=== PATIENT | male | born 1985 | race Caucasian/White ===

== ENCOUNTER 2017-04-26 17:45 | Emergency (ER) | payer OTHER, SELFPAY | END 2017-04-26 18:20 | disposition home or self-care (01) | PROVIDERS: Emergency Provider Nurse Practitioner Family; Visit Provider Nurse Practitioner Family | DX: S02.5XXB Fracture of tooth (traumatic), initial encounter for open fracture (principal); X58.XXXA Exposure to other specified factors, initial encounter | CPT/HCPCS: 99201 ==

== ENCOUNTER → 2022-03-12 14:50 | Outpatient (CLI) | payer MEDICAID, SELFPAY ==
[2022-03-12 13:55] LABS: Alanine Aminotransferase 32 U/L (12-78); Albumin Level 3.5 g/dl (3.5-5.0); Albumin/Globulin Ratio 1.1 (1.1-1.8); Alkaline Phosphatase 145 U/L (38-126); Anion Gap 12.4 mEq/L (5-15); Aspartate Amino Transferase 38 U/L (17-59); Basophils # 0.1 K/mm3 (0-0.2); Basophils % 0.5 % (0.1-2.0); Bilirubin,Total 0.6 mg/dl (0.2-1.3); Blood Urea Nitrogen 27 mg/dl (9-20); Calcium 9.1 mg/dl (8.4-10.2); Carbon Dioxide 29 mmol/L (22.0-30.0); Chloride 102 mmol/L (98-107); Chol/HDL Ratio 8.2 (1-3.5); Cholesterol 287 mg/dl (140-200); Eosinophils # 0.1 K/mm3 (0.0-0.4); Eosinophils % 1.4 % (0.1-12.0); Estimated Glomerular Filt Rate 46 ml/min (>60); GFR (African American) 55 ML/MIN (>60); Globulin 3.1 g/dL (1.3-3.2); Glucose 102 mg/dl (74-100); HDL Cholesterol 35 mg/dl (40-60); Hematocrit 51.1 % (42.0-52.0); Hemoglobin 16.9 g/dL (14.1-18.0); Lymphocytes # 1.7 K/mm3 (0.7-4.5); Lymphocytes % 17.8 % (10-50); Mean Corpuscular Hemoglobin 29.5 pg (27.0-31.2); Mean Corpuscular Volume 89.4 fl (80-94); Mean Platelet Volume 8.5 fl (7.4-10.4); Monocytes # 0.8 K/mm3 (0.1-1.0); Monocytes % 8.3 % (1.7-9.3); Neutrophils # 6.8 K/mm3 (1.8-7.8); Platelet Count 304 K/mm3 (142-424); Potassium 4.4 mmoL/L (3.5-5.1); Red Blood Count 5.71 M/mm3 (4.60-6.20); Red Cell Distribution Width 14.5 % (11.5-17.5); Sodium 139 mmol/L (136-145); Total Protein,Serum 6.6 g/dl (6.3-8.2); Triglycerides 270 mg/dl (30-150); VLDL Cholesterol 54 mg/dL (0-40); White Blood Count 9.5 K/mm3 (4.8-10.8)
[2022-03-12 14:06] LABS: Direct LDL Cholesterol 197.14 mg/dL (100-129)
[2022-03-12 14:15] LABS: Hemoglobin A1C 4.9 % (4.0-6.0)
[2022-03-12 14:26] LABS: Thyroid Stimulating Hormone 5.11 uIU/mL (0.465-4.68)
== END ==
PROVIDERS: PCP Family Medicine; Visit Provider Family Medicine
DX: E66.9 Obesity, unspecified (principal); Z68.44 Body mass index [BMI] 60.0-69.9, adult
CPT/HCPCS: 80053; 80061; 83036; 84443; 85025

== ENCOUNTER 2023-05-21 18:30 | Outpatient (CLI) | payer MEDICAID, SELFPAY ==
[2023-05-21 19:20] LABS: Basophils % 0.4 % (0.1-2.0); Eosinophils # 0.2 K/mm3 (0.0-0.4); Hematocrit 35.7 % (42.0-52.0); Hemoglobin 11.9 g/dL (14.1-18.0); Lymphocytes # 1.1 K/mm3 (0.7-4.5); Lymphocytes % 11.9 % (10-50); Mean Corpuscular HGB Conc 33.3 g/dL (31.8-35.4); Mean Corpuscular Hemoglobin 30.1 pg (27.0-31.2); Mean Corpuscular Volume 90.3 fl (80-94); Mean Platelet Volume 9.1 fl (7.4-10.4); Monocytes # 0.5 K/mm3 (0.1-1.0); Monocytes % 5.7 % (1.7-9.3); Neutrophils # 7.4 K/mm3 (1.8-7.8); Neutrophils % 80.1 % (37.0-80.0); Platelet Count 215 K/mm3 (142-424); Red Blood Count 3.95 M/mm3 (4.60-6.20); Red Cell Distribution Width 14.5 % (11.5-17.5); White Blood Count 9.2 K/mm3 (4.8-10.8)
[2023-05-21 19:23] LABS: Alanine Aminotransferase 25 U/L (12-78); Albumin Level 3.7 g/dl (3.5-5.0); Albumin/Globulin Ratio 1.3 (1.1-1.8); Alkaline Phosphatase 109 U/L (38-126); Anion Gap 18.3 mEq/L (5-15); Aspartate Amino Transferase 28 U/L (17-59); Bilirubin,Total 0.5 mg/dl (0.2-1.3); Calcium 6.3 mg/dl (8.4-10.2); Carbon Dioxide 17 mmol/L (22.0-30.0); Chloride 108 mmol/L (98-107); Chol/HDL Ratio 6.6 (1-3.5); Cholesterol 186 mg/dl (140-200); Estimated Glomerular Filt Rate 6 ml/min (>60); GFR (African American) 7 ML/MIN (>60); Globulin 2.8 g/dL (1.3-3.2); Glucose 123 mg/dl (74-100); HDL Cholesterol 28 mg/dl (40-60); Potassium 4.3 mmoL/L (3.5-5.1); Sodium 139 mmol/L (136-145); Total Protein,Serum 6.5 g/dl (6.3-8.2); Triglycerides 164 mg/dl (30-150); VLDL Cholesterol 33 mg/dL (0-40)
[2023-05-21 19:42] LABS: 25-OH Vitamin D, Total < 12.8 ng/mL (30-100)
[2023-05-21 19:55] LABS: Thyroid Stimulating Hormone 3.97 uIU/mL (0.465-4.68)
[2023-05-21 20:11] LABS: Blood Urea Nitrogen 86 mg/dl (9-20)
[2023-05-21 20:22] LABS: Direct LDL Cholesterol 114.95 mg/dL (100-129)
[2023-05-21 20:33] LABS: Hemoglobin A1C 4.6 % (4.0-6.0)
== END 2023-05-21 23:59 ==
LOC: LAB.DROPOF 18:31
PROVIDERS: PCP Physician Assistant; Visit Provider Physician Assistant
DX: E03.9 Hypothyroidism, unspecified (principal); E66.9 Obesity, unspecified
CPT/HCPCS: 80053; 80061; 82306; 83036; 84443; 85025

== ENCOUNTER 2023-05-21 20:41 | Inpatient (IN) | payer MEDICAID, SELFPAY ==
[2023-05-21 20:57] VITALS: BP 189/138; PULSE 93; RESP 16; TEMP 36.8; O2SAT 100; BMI 63.8
[2023-05-21 21:00] VITALS: BP 207/142; PULSE 88; O2SAT 100
[2023-05-21 21:30] VITALS: BP 199/136; PULSE 89; O2SAT 99
--- NOTE | 2023-05-21 22:09 | PC.NURSE ---
rounded on pt ice chips given
--- NOTE | 2023-05-21 22:32 | PC.NURSE ---
Spoke with [facility] regarding tx to [facility] for acute kidney injury. She advised she sent a message to them and would call back when they respond to let us know either way
--- NOTE | 2023-05-21 22:45 | PC.NURSE ---
[facility] called and advised they have no beds available so they declined tx
[2023-05-21 22:48] LABS: Creatine Kinase 538 U/L (55-170); Phosphorous 7.6 mg/dl (2.5-4.5)
[2023-05-21 22:49] LABS: Magnesium 1.6 mg/dl (1.6-2.3)
--- NOTE | 2023-05-21 23:10 | PC.NURSE ---
Spoke with [facility] transfer center they advised they have no beds but will place pt on waiting list
--- NOTE | 2023-05-21 23:10 | PC.NURSE ---
Spoke with [facility] center they advised they have no beds but will place pt on waiting list
--- NOTE | 2023-05-21 23:11 | ED_ITS ---
Discharge Plan Disposition Patient Disposition: Admitted Prescriptions Prescriptions: No Action levothyroxine [Synthroid] 125 mcg tablet 125 mcg PO DAILY Qty: 90 3RF rosuvastatin [Crestor] 20 mg tablet 20 mg PO DAILY Qty: 90 3RF nebivolol [Bystolic] 10 mg tablet 10 mg PO DAILY Qty: 30 2RF pantoprazole [Protonix] 40 mg tablet,delayed release (DR/EC) 40 mg PO DAILY Qty: 30 2RF Referrals Follow up/Referrals: Mark Ch MD [Primary Care Provider] - See instructions Clinical Impressions Clinical Impression: NELA (acute kidney injury) Discharge ED Provider: Radha Stafford General Adult HPI General Chief complaint: Recheck/Abnormal Lab/Rx Stated complaint: sent by Dr. Ch Time Seen by Provider: 05/21/23 22:12 Mode of Arrival: Ambulatory Source of Information: Patient Limitations: No Limitations Description of Symptoms (Recalled from ER Triage Doc. by RN): pt states he rece ived a call from his PCP, Dr. Ch around 1999 reporting that the pt was in kidney failure and dehydrated based on labs from earlier today. pt states he has been sick on and off for the last month. Mostly c/o N/V, no energy and a decreased appetite. pt states he is feeling pretty well today. However, he reports he is very anxious at the moment. pts BP is 189/138. pt reports he was started on nevibolo today for HTN. History of Present Illness HPI narrative: Is a 37-year-old male morbidly obese but denies any other significant past medical problems who presents today with acute kidney injury with a creatinine greater than send Dr. Ch called him after he had some generalized malaise and fatigue sent him to the emergency department. He states other than feeling a little bit weak he has no other symptoms he had a few days of nausea and vomiting but nothing significant denies any pain at the moment still is having good urine output. Related Data Previous Rx's Medication Instructions Recorded levothyroxine 125 mcg tablet 125 mcg PO DAILY #90 tabs 04/17/22 (Synthroid) rosuvastatin 20 mg tablet (Crestor) 20 mg PO DAILY #90 tabs 04/17/22 nebivolol 10 mg tablet (Bystolic) 10 mg PO DAILY #30 tabs 05/21/23 pantoprazole 40 mg tablet,delayed 40 mg PO DAILY #30 tabs 05/21/23 release (Protonix) Allergies Allergy/AdvReac Type Severity Reaction Status Date / Time No Known Allergies Allergy Verified 05/21/23 21:08 [facility] Disclaimer: The information contained in this section may have been updated after the pat ient was seen, as this information can be updated by other users. Medical History Hypertension Family History Sister MS (multiple sclerosis) Father Coronary artery disease Heart attack Social History Smoking Status: Never smoker alcohol intake: never substance use type: denies use current occupational status: unemployed Travel in the last 8 weeks: None ROS Obtained: Yes All systems reviewed & no additional complaints except as documented Physical Exam General General appearance: alert Respiratory Respiratory exam: Present normal lung sounds bilaterally Cardiovascular Cardiovascular exam: Present regular rate Neurological Exam Neurological exam: Present alert Medical Decision Making Sonu Inquiry Pt receiving controlled substance: No Vital Signs: 05/21/23 20:57 05/21/23 21:00 05/21/23 21:30 Temperature 98.3 F Temperature Source Oral Pulse Rate 88 89 Pulse Rate [Left] 93 H Respiratory Rate 16 Blood Pressure 207/142 H 199/136 H Blood Pressure [Right Arm] 189/138 H Blood Pressure Mean [Right Arm] 155 Blood Pressure Source [Right Arm] Automatic Cuff Blood Pressure Position [Right Arm] Sitting 02 Sat by Pulse Oximetry 100 100 99 Oxygen Delivery Method Room Air Room Air Room Air Lab Data Lab results reviewed: Yes I reviewed the patient's lab results. Lab Results 05/21/23 22:30: Phosphorus 7.6 H, Magnesium 1.6, Total Creatine Kinase 538 H* Orders (Tests/Meds): ED MEDICATIONS Generic Name Dose Route Start Last Admin Trade Name Freq PRN Reason Stop Dose Admin Lactated Ringer's 1,000 mls @ 999 mls/hr 05/21/23 22:30 Lactated Ringer's 1000 Ml Bag IV 05/21/23 23:30 .Q1H1M ANABELL ORDERS Category Date Time Status CK [Creatine Kinase] Stat Lab 05/21/23 22:30 Completed Magnesium Stat Lab 05/21/23 22:30 Completed Phosphorous Stat Lab 05/21/23 22:30 Completed UA [Urinalysis and Microscopic] Stat Lab 05/21/23 22:24 Ordered Medical Decision Narrative: 37-year-old male labs drawn earlier today they are not reported on this documentation but his creatinine was greater than 10 BUN is 80 potassium of 4.3 baseline creatinine was 1.7 about a year ago. We called numerous healthcare systems including [facility] etc. he was placed on 3 wait list but nobody was able to except the patient at the moment as no one had capacity. I spoke with Elena who is on- call for hospital medicine who agreed to admit the patient while the patient has a bed this were drawn at another facility. 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 Critical Care Critical Care Time Critical Care Time: Yes Attestation: On 05/21/23, the high probability of a clinically significant, sudden or life threatening deterioration of the following system(s) required my full and direct attention, intervention and personal management. The time I documented below is in addition to time spent performing reported procedures but includes the following listed in this critical care notation. Total Time Total Critical Care Time: 35
--- NOTE | 2023-05-21 23:11 | PC.NURSE ---
Spoke with [facility] they advised they have no beds but will place pt on waiting list
--- NOTE | 2023-05-21 23:14 | PC.NURSE ---
Requested a bed from clerical warehouse worker, Karina, for NELA.
--- NOTE | 2023-05-21 23:15 | PC.NURSE ---
On hold for [facility]
[2023-05-21] MEDS: LACTATED RINGERS 1000ML 1,000 ML 999 ML IV (23:16)
--- NOTE | 2023-05-21 23:28 | PC.NURSE ---
Dr. Stafford on phone with [facility]
[2023-05-21 23:59] LABS: Basophils % 0.4 % (0.1-2.0); Eosinophils # 0.1 K/mm3 (0.0-0.4); Hematocrit 35.3 % (42.0-52.0); Hemoglobin 11.8 g/dL (14.1-18.0); Lymphocytes % 9.6 % (10-50); Mean Corpuscular HGB Conc 33.6 g/dL (31.8-35.4); Mean Corpuscular Hemoglobin 30.2 pg (27.0-31.2); Mean Corpuscular Volume 89.9 fl (80-94); Mean Platelet Volume 8.1 fl (7.4-10.4); Monocytes # 0.6 K/mm3 (0.1-1.0); Monocytes % 6.3 % (1.7-9.3); Neutrophils # 8.2 K/mm3 (1.8-7.8); Neutrophils % 82.8 % (37.0-80.0); Platelet Count 220 K/mm3 (142-424); Red Blood Count 3.92 M/mm3 (4.60-6.20); Red Cell Distribution Width 14.5 % (11.5-17.5); White Blood Count 9.9 K/mm3 (4.8-10.8)
--- NOTE | 2023-05-22 00:16 | PC.NURSE ---
Report called to Amie [facility]
[2023-05-22 00:17] VITALS: BP 190/135; PULSE 74; RESP 20; TEMP 36.8; O2SAT 100
[2023-05-22 00:20] LABS: Chloride 105 mmol/L (98-107); Potassium 4.3 mmoL/L (3.5-5.1); Sodium 141 mmol/L (136-145)
[2023-05-22 00:23] LABS: Alanine Aminotransferase 25 U/L (12-78); Albumin Level 4.1 g/dl (3.5-5.0); Albumin/Globulin Ratio 1.3 (1.1-1.8); Alkaline Phosphatase 110 U/L (38-126); Anion Gap 20.3 mEq/L (5-15); Aspartate Amino Transferase 29 U/L (17-59); Bilirubin,Total 0.6 mg/dl (0.2-1.3); Carbon Dioxide 20 mmol/L (22.0-30.0); Creatinine Clearance Estimated 10 mL/min (50-200); Estimated Glomerular Filt Rate 5 ml/min (>60); GFR (African American) 6 ML/MIN (>60); Globulin 3.1 g/dL (1.3-3.2); Total Protein,Serum 7.2 g/dl (6.3-8.2)
[2023-05-22 00:24] LABS: Calcium 6.6 mg/dl (8.4-10.2); Glucose 106 mg/dl (74-100)
[2023-05-22 00:29] LABS: Blood Urea Nitrogen 94 mg/dl (9-20)
--- NOTE | 2023-05-22 00:35 | PC.NURSE ---
rounded on patient, states he hasn't eaten since early today, pt. given sandwich, chips and cookies
--- NOTE | 2023-05-22 01:00 | EXP.HP ---
History of Present Illness *Admission Date: 05/21/23 (Patient was seen by this provider on 05/21/2023 at 2358) *Reason for visit:: Abnormal labs *History of present illness: This is a very nice 37-year-old male with past medical history of hypothyroidism and dyslipidemia who presents emergency department today with complaints of abnormal labs. He reports feeling generally unwell over the last 2 weeks. States that he has had episodes of mild vomiting and some episodes of loose stool. Says he felt like he was rundown over the last 2 weeks and possibly had COVID. He states that he would intermittent bouts of going poorly and then feeling normal. He also endorses mild headache over the last several weeks. He was able to finally see a physician today and had his labs drawn. He was noted to be hypertensive there for which she was prescribed nebivolol. He reports he is also been out of his thyroid and cholesterol medicine for approximately 3 weeks. He was called by his primary care doctor today who instructed him to seek treatment in the emergency department immediately for acute renal failure. He states that he is still able to urinate. He does endorse that his urine is typically light yellow but today it was dark. He reports other than the last 2 weeks he has been in his normal state of health. Denies any traumatic injuries. Denies any heat related illnesses. States that he did allow himself to have bed rest while he was not feeling well but other than that he has been at his baseline Emergency department workup significant for hypertensive emergency with systolic blood pressures in the 190s and acute renal failure with a creatinine of 10 from patient's doctor's office. He is also noted to have a CK of 538. Calcium of 6.6, phosphorus of 7.6. BUN of 94. Anion gap of 20. CO2 of 20. Patient is currently waitlisted at [facility] for transfer for acute renal failure with nephrology. On my exam patient is resting comfortably and states that he has no complaints at this time. Blood pressure is 190/90. Repeat labs obtained and creatinine is now 12.3 from prior labs from this morning. Will initiate normal saline and calcium replacement. Potassium are within normal limits currently with a potassium of 4.3. [facility] Disclaimer: The information contained in this section may have been updated after the patient was seen, as this information can be updated by other users. Medical History (Updated 05/22/23 @ 01:17 by Amie Collazo RN) Hyperlipidemia Hypertension Thyroid disease Family History Sister MS (multiple sclerosis) Father Coronary artery disease Heart attack Social History Smoking Status: Never smoker alcohol intake: never substance use type: denies use current occupational status: unemployed Travel in the last 8 weeks: None Review of Systems Constitutional Constitutional: Reports as per HPI Eyes Eyes: Reports as per HPI ENT Ears, Nose, Mouth, and Throat: Reports as per HPI *Cardiovascular Cardiovascular: Reports as per HPI *Respiratory Respiratory: Reports as per HPI *Gastrointestinal Gastrointestinal: Reports as per HPI *Genitourinary Genitourinary: Reports as per HPI *Musculoskeletal Musculoskeletal: Reports as per HPI Integumentary/Breasts Skin/Breast: Reports as per HPI *Neurologic Neurologic: Reports as per HPI Psychiatric Psychiatric: Reports as per HPI Endocrine Endocrine: Reports as per HPI Hematologic/Lymphatic Hematologic/Lymphatic: Reports as per HPI Meds Home Medications and Allergies Home Medications Medication Instructions Recorded Confirmed Type levothyroxine 125 mcg tablet 125 mcg PO DAILY #90 tabs 04/17/22 05/22/23 Rx (Synthroid) nebivolol 10 mg tablet (Bystolic) 10 mg PO DAILY #30 tabs 05/21/23 05/22/23 Rx pantoprazole 40 mg tablet,delayed 40 mg PO DAILY #30 tabs 05/21/23 05/22/23 Rx release (Protonix) New Prescriptions to Start Prescriptions: Allergies Allergy/AdvReac Type Severity Reaction Status Date / Time No Known Allergies Allergy Verified 05/21/23 21:08 Exam Data for Last 24 hours Vital signs and Labs for Last 24 Hours: Temp Pulse Resp BP Pulse Ox O2 Del Method 98.3 F 74 20 190/135 H 99 Room Air 05/22/23 00:17 05/22/23 00:17 05/22/23 00:17 05/22/23 00:17 05/21/23 21:30 05/21/23 21:30 Laboratory Results - last 24 hr 05/21/23 22:30: WBC 9.9, RBC 3.92 L, Hgb 11.8 L, Hct 35.3 L, MCV 89.9, MCH 30.2, MCHC 33.6, RDW 14.5, Plt Count 220, MPV 8.1, Neut % (Auto) 82.8 H, Lymph % (Auto) 9.6 L, [place] % (Auto) 6.3, Eos % (Auto) 1.0, Baso % (Auto) 0.4, Neut # (Auto) 8.2 H, Lymph # (Auto) 1.0, [place] # (Auto) 0.6, Eos # (Auto) 0.1, Baso # (Auto) 0.0, Sodium 141, Potassium 4.3, Chloride 105, Carbon Dioxide 20 L, Anion Gap 20.3 H, BUN 94 H, Creatinine 12.30 H, Estimated Creat Clear 10, Estimated GFR 5 L*, Est GFR ( Amer) 6 L*, Glucose 106 H, Calcium 6.6 L, Phosphorus 7.6 H, Magnesium 1.6, Total Bilirubin 0.6, AST 29, ALT 25, Alkaline Phosphatase 110, Total Creatine Kinase 538 H*, Total Protein 7.2, Albumin 4.1 D, Globulin 3.1, Albumin/Globulin Ratio 1.3 I & O for Last 24 hours: Intake & Output 05/19/23 05/20/23 05/21/23 05/22/23 23:59 23:59 23:59 23:59 Weight 238.136 kg Constitutional Constitutional: no acute distress *Routine HEENT Exam Head: Present normocephalic and atraumatic Eye: Present PERRL ENT: Present mucous membranes dry *Routine Neck Exam Neck: Present supple and full ROM *Routine Respiratory Exam Respiratory: Present normal respiratory effort *Routine Cardiovascular Exam Cardiovascular: Present RRR, Normal S1 and Normal S2 *Routine Abdominal Exam Abdominal: Present soft and normoactive bowel sounds *Routine Rectal Exam Rectal:: deferred *Routine Genitalia Exam Genitalia:: deferred *Routine Extremities Exam Extremities: Present full ROM, pulses intact and normal capillary refill *Routine Skin Exam Skin: Present intact and dry *Routine Neurological Exam Neurological: Present alert, oriented X3 and CN II-XII intact Assessment and Plan *Assessment and plan (1) NELA (acute kidney injury): Status: Acute Category: Medical Code(s): N17.9 - Acute kidney failure, unspecified (2) Renal insufficiency: Status: Acute Category: Medical Code(s): N28.9 - Disorder of kidney and ureter, unspecified (3) Dyslipidemia: Status: Acute Category: Medical Code(s): E78.5 - Hyperlipidemia, unspecified (4) Hypothyroidism: Status: Acute Qualifiers: Hypothyroidism type: acquired Qualified Code(s): E03.9 - Hypothyroidism, unspecified Category: Medical Code(s): E03.9 - Hypothyroidism, unspecified (5) Obesity: Status: Acute Qualifiers: Body mass index: BMI 45.0-49.9 Obesity classification: adult class 3 (BMI >= 40) Obesity type: unspecified obesity type Category: Medical Code(s): E66.9 - Obesity, unspecified Plan This is a 37-year-old male with past history of hypothyroidism and hypercholesterol who is admitted pending transfer for nephrology workup. He was found to have acute renal failure with a creatinine of 10 and hypertensive Emergency. Acute renal failure Laboratory evaluation from PCPs office with a creatinine of 10 with increased to 12.3 upon admission. BUN of 94. Awaiting transfer, on wait list at [facility] Will initiate sodium bicarb supplementation as well as normal saline. Patient reports generally feeling unwell over the last 2 weeks. Unsure if hypertension has caused this acute renal failure or if it might be prerenal in nature from prior illness. Patient reports urinating several times a day and he feels as if it is adequate urination Will send urinalysis now Will obtain renal ultrasound in the a.m. Strict intake and output Avoid nephrotoxic medications Unable to undergo CT scan of the abdomen due to size Hypertensive emergency Evidence of endorgan damage with elevated creatinine Was started on beta-bill today, will resume beta-bill Will add additional IV as needed medications Avoid nephrotoxic medications for antihypertensives Hypocalcemia In the setting of acute renal failure Will replace now and monitor a.m. labs Rhabdomyolysis Mild, CPK 538 Continue IV hydration Repeat labs in a.m. Hypothyroidism Continue patient's levothyroxine Severe morbid obesity Complicates all aspects of care DVT ppx SQ FUll Code Rounded on patient after nurse practitioner. Personally examined and interviewed patient. Agree with exam findings and care plan as documented. Patient complains of significant protein loss in his urine (complains of frothy urine). Concern for nephrotic syndrome. Agree with transfer, needs nephrology and further workup. He has been on the capability of our facility to effectively workup and treat.
--- NOTE | 2023-05-22 01:02 | PC.NURSE ---
pt arrived to the floor @00:52
[2023-05-22] MEDS: HYDRALAZINE 20MG/ML VIAL 10 MG IV (01:28)
[2023-05-22] MEDS: METOPROLOL TARTRATE 50MG TABLET 25 MG PO (01:29)
[2023-05-22 01:35] VITALS: BP 188/136; PULSE 73; RESP 18; TEMP 36.7; O2SAT 98; BMI 58.7
[2023-05-22] MEDS: CALCIUM GLUCONATE 1,000 MG in 0.9 % SODIUM CHLORIDE 50 ML 60 MG IV (01:45)
[2023-05-22 02:23] VITALS: BP 164/103; PULSE 73
[2023-05-22] MEDS: 0.9 % SODIUM CHLORIDE 1000ML 1,000 ML 150 ML IV (02:58)
[2023-05-22 04:00] VITALS: BP 168/118; PULSE 72; RESP 18; TEMP 36.4; BMI 58.7
[2023-05-22 05:52] LABS: Microscopic, Urine URINE MICROSCOPIC (MICROSCOPIC)
[2023-05-22 05:53] LABS: Appearance,Urine CLEAR (Clear); Bilirubin,Urine Negative (Negative); Blood, Urine 2+ (Negative); Color,Urine YELLOW (Yellow); Glucose,Urine (UA) Negative (Negative); Ketones,Urine Negative (Negative); Leukocyte Esterase,Urine Negative (Negative); Nitrate,Urine Negative (Negative); Protein,Urine 3+ (Negative); Urobilinogen,Urine 0.2 EU/dl (0.2)
[2023-05-22 06:05] LABS: Bacteria,Urine Trace /lpf; Squamous Epithelial Cell,Urine Occasional #/hpf (0-5); WBC,Urine Occasional #/hpf (0-3)
[2023-05-22 06:41] LABS: Anion Gap 15.4 mEq/L (5-15); Calcium 6.6 mg/dl (8.4-10.2); Carbon Dioxide 18 mmol/L (22.0-30.0); Chloride 108 mmol/L (98-107); Chol/HDL Ratio 6.8 (1-3.5); Cholesterol 176 mg/dl (140-200); Creatinine Clearance Estimated 10 mL/min (50-200); Estimated Glomerular Filt Rate 5 ml/min (>60); GFR (African American) 6 ML/MIN (>60); Glucose 99 mg/dl (74-100); HDL Cholesterol 26 mg/dl (40-60); Potassium 4.4 mmoL/L (3.5-5.1); Sodium 137 mmol/L (136-145); Triglycerides 157 mg/dl (30-150); VLDL Cholesterol 31 mg/dL (0-40)
[2023-05-22 06:45] LABS: Basophils % 0.4 % (0.1-2.0); Eosinophils # 0.1 K/mm3 (0.0-0.4); Eosinophils % 0.9 % (0.1-12.0); Hematocrit 33.8 % (42.0-52.0); Hemoglobin 11.3 g/dL (14.1-18.0); Mean Corpuscular HGB Conc 33.4 g/dL (31.8-35.4); Mean Corpuscular Volume 89.8 fl (80-94); Mean Platelet Volume 8.6 fl (7.4-10.4); Monocytes # 0.5 K/mm3 (0.1-1.0); Neutrophils # 6.8 K/mm3 (1.8-7.8); Neutrophils % 80.6 % (37.0-80.0); Platelet Count 199 K/mm3 (142-424); Red Blood Count 3.77 M/mm3 (4.60-6.20); Red Cell Distribution Width 14.5 % (11.5-17.5); White Blood Count 8.4 K/mm3 (4.8-10.8)
[2023-05-22 06:46] VITALS: PULSE 75
[2023-05-22 06:52] LABS: Direct LDL Cholesterol 98.56 mg/dL (100-129)
[2023-05-22 06:53] LABS: Creatine Kinase 495 U/L (55-170)
[2023-05-22 07:02] LABS: Blood Urea Nitrogen 94 mg/dl (9-20)
--- NOTE | 2023-05-22 07:23 | PC.NURSE ---
Patient sitting at side of bed. Denies pain, nausea and SOB. States understanding and agreement with transfer. Denies needs at this time
--- NOTE | 2023-05-22 07:25 | HMH.PHAINT1 ---
Pharmacy Intervention Comments: Home med list verified with patient at bedside and with external pharmacy list.
--- NOTE | 2023-05-22 07:35 | PC.NURSE ---
Report called to [facility]
[2023-05-22 08:00] VITALS: BP 194/132; PULSE 70; PULSE 74; RESP 22; TEMP 36.8; O2SAT 99
--- NOTE | 2023-05-22 08:00 | US_ITS ---
FINAL REPORT TECHNIQUE: Ultrasound images of the kidneys and bladder were obtained. CLINICAL HISTORY: ARF FINDINGS: The right kidney measures 11.5 cm in length. There is increased echogenicity. There is no hydronephrosis. The left kidney measures 12.3 cm in length. There is increased echogenicity. There is no hydronephrosis. The spleen is unremarkable. IMPRESSION: Increased renal echogenicity consistent with medical renal disease. Reviewed, Interpreted and Dictated by Ziggy Perez III, MD Transcribed by Katie Mcdonnell Authenticated and [facility]
--- NOTE | 2023-05-22 08:01 | EXP.DC.SUM ---
General Admission date:: 05/22/23 Discharge date: 05/22/23 HPI HPI HPI: This is a very nice 37-year-old male with past medical history of hypothyroidism and dyslipidemia who presents emergency department today with complaints of abnormal labs. He reports feeling generally unwell over the last 2 weeks. States that he has had episodes of mild vomiting and some episodes of loose stool. Says he felt like he was rundown over the last 2 weeks and possibly had COVID. He states that he would intermittent bouts of going poorly and then feeling normal. He also endorses mild headache over the last several weeks. He was able to finally see a physician today and had his labs drawn. He was noted to be hypertensive there for which she was prescribed nebivolol. He reports he is also been out of his thyroid and cholesterol medicine for approximately 3 weeks. He was called by his primary care doctor today who instructed him to seek treatment in the emergency department immediately for acute renal failure. He states that he is still able to urinate. He does endorse that his urine is typically light yellow but today it was dark. He reports other than the last 2 weeks he has been in his normal state of health. Denies any traumatic injuries. Denies any heat related illnesses. States that he did allow himself to have bed rest while he was not feeling well but other than that he has been at his baseline Emergency department workup significant for hypertensive emergency with systolic blood pressures in the 190s and acute renal failure with a creatinine of 10 from patient's doctor's office. He is also noted to have a CK of 538. Calcium of 6.6, phosphorus of 7.6. BUN of 94. Anion gap of 20. CO2 of 20. Patient is currently waitlisted at [facility] and [facility] for transfer for acute renal failure with nephrology. On my exam patient is resting comfortably and states that he has no complaints at this time. Blood pressure is 190/90. Repeat labs obtained and creatinine is now 12.3 from prior labs from this morning. Will initiate normal saline and calcium replacement. Potassium are within normal limits currently with a potassium of 4.3. Hospital Course Hospital Course Hospital Course: This is a 37-year-old male with past history of hypothyroidism and hypercholesterol who is admitted pending transfer for nephrology workup. He was found to have acute renal failure with a creatinine of 10 and hypertensive Emergency. Patient was fluid overnight with no improvement in creatinine.Patient received 1300 cc of IV fluid, has had 700 cc of urine output. Urine described as frothy with significant bubbles. Concern for proteinuria. Creatinine bumped to 11.8 this morning and BUN is 94. Will be transferring to [place] for further care, appreciate their assistance.. Medically stable for transfer for further workup of renal dysfunction. Problems addressed as follows: Acute renal failure Laboratory evaluation from PCPs office with a creatinine of 10 with increased to 12.3 upon admission. BUN of 94. Received little over a liter of IV fluid during admission, had 700 cc of urine output. Creatinine still elevated 11.8 this morning. Patient has been accepted at [place] for further management. Patient also noted to have significant electrolyte disturbances including Metabolic acidosis with bicarb of 18, calcium 6.6, phosphorus 7.6. Albumin interestingly within the normal range at 4.1, total protein 7.2. Urinalysis obtained showing 3+ protein, 2+ blood. Negative for UTI. Patient does have reportedly some longstanding hypertension. Currently on nebivolol 10 mg daily as an outpatient. Continued metoprolol as formulary conversion while admitted. Admit still elevated with systolics in the 160s. Differential diagnosis includes nephritis, nephrotic syndrome, pigment induced kidney injury (rhabdomyolysis), postinfectious glomerulonephritis. Protein give strong concern for nephropathy. Needs further management by nephrology. Will defer further labs, workup, biopsy to receiving hospital. Additionally, unable to perform scans of abdomen due to patient's size and capacity of our scanner at our facility. Hypertensive emergency Evidence of endorgan damage with elevated creatinine. Continue nebivolol. Avoiding nephrotoxics. Patient has had fatigue for over a month. Hypocalcemia In the setting of acute renal failure, received 1 g IV. Rhabdomyolysis Mild, CPK 538. Denies any muscle aches, does complain of general fatigue. Statin held during admission due to concern for increased risk of muscle injury. Hypothyroidism Continue patient's levothyroxine Severe morbid obesity Complicates all aspects of care Stable for transfer to higher level of care. Exam Data for Last 24 hours Vital signs and Labs for Last 24 Hours: Temp Pulse Resp BP Pulse Ox O2 Del Method 97.6 F 75 18 168/118 H 98 Room Air 05/22/23 04:00 05/22/23 06:46 05/22/23 04:00 05/22/23 04:00 05/22/23 01:35 05/22/23 01:49 Laboratory Results - last 24 hr 05/21/23 22:30: WBC 9.9, RBC 3.92 L, Hgb 11.8 L, Hct 35.3 L, MCV 89.9, MCH 30.2, MCHC 33.6, RDW 14.5, Plt Count 220, MPV 8.1, Neut % (Auto) 82.8 H, Lymph % (Auto) 9.6 L, [place] % (Auto) 6.3, Eos % (Auto) 1.0, Baso % (Auto) 0.4, Neut # (Auto) 8.2 H, Lymph # (Auto) 1.0, [place] # (Auto) 0.6, Eos # (Auto) 0.1, Baso # (Auto) 0.0, Sodium 141, Potassium 4.3, Chloride 105, Carbon Dioxide 20 L, Anion Gap 20.3 H, BUN 94 H, Creatinine 12.30 H, Estimated Creat Clear 10, Estimated GFR 5 L*, Est GFR ( Amer) 6 L*, Glucose 106 H, Calcium 6.6 L, Phosphorus 7.6 H, Magnesium 1.6, Total Bilirubin 0.6, AST 29, ALT 25, Alkaline Phosphatase 110, Total Creatine Kinase 538 H*, Total Protein 7.2, Albumin 4.1 D, Globulin 3.1, Albumin/Globulin Ratio 1.3 05/22/23 05:20: Urine Color Yellow, Urine Appearance Clear, Urine pH 6.0, Ur Specific [place] 1.020, Urine Protein 3+, Urine Glucose (UA) Negative, Urine Ketones Negative, Urine Blood 2+, Urine Nitrate Negative, Urine Bilirubin Negative, Urine Urobilinogen 0.2, Ur Leukocyte Esterase Negative, Urine RBC 10-20, Urine WBC Occasional, Ur Squamous Epith Cells Occasional, Urine Bacteria Trace 05/22/23 06:19: WBC 8.4, RBC 3.77 L, Hgb 11.3 L, Hct 33.8 L, MCV 89.8, MCH 30.0, MCHC 33.4, RDW 14.5, Plt Count 199, MPV 8.6, Neut % (Auto) 80.6 H, Lymph % (Auto) 12.0, [place] % (Auto) 6.0, Eos % (Auto) 0.9, Baso % (Auto) 0.4, Neut # (Auto) 6.8, Lymph # (Auto) 1.0, [place] # (Auto) 0.5, Eos # (Auto) 0.1, Baso # (Auto) 0.0, Sodium 137, Potassium 4.4, Chloride 108 H, Carbon Dioxide 18 L, Anion Gap 15.4 H, BUN 94 H, Creatinine 11.80 H, Estimated Creat Clear 10, Estimated GFR 5 L*, Est GFR ( Amer) 6 L*, Glucose 99, Calcium 6.6 L, Total Creatine Kinase 495 H, Triglycerides 157 H, Cholesterol 176, LDL Cholesterol Direct 98.56 L, VLDL Cholesterol 31, HDL Cholesterol 26 L, Cholesterol/HDL Ratio 6.8 H I & O for Last 24 hours: Intake & Output 05/19/23 05/20/23 05/21/23 05/22/23 23:59 23:59 23:59 23:59 Intake Total 1302 / 1302 Output Total 700 / 700 Balance 602 / 602 Weight 238.136 kg 218.677 kg Constitutional Constitutional: no acute distress, morbidly obese and chronically ill appearing *Routine HEENT Exam Head: Present normocephalic Eye: Present EOMI and PERRL ENT: Present mucous membranes moist *Routine Neck Exam Neck: Present supple; Absent lymphadenopathy *Routine Respiratory Exam Respiratory: Present CTA bilaterally and distant breath sounds *Routine Cardiovascular Exam Cardiovascular: Present RRR *Routine Abdominal Exam Abdominal: Present soft and normoactive bowel sounds; Absent tenderness *Routine Extremities Exam Extremities: Present edema (1+); Absent cyanosis or clubbing *Routine Skin Exam Skin: Present warm; Absent rash *Routine Neurological Exam Neurological: Present alert, oriented X3 and moving all extremities; Absent altered mental status Results Data Completed and Pending Labs on day of discharge: Labs from last 24 hours 05/22/23 05/22/23 05/21/23 06:19 05:20 22:30 WBC 8.4 9.9 RBC 3.77 L 3.92 L Hgb 11.3 L 11.8 L Hct 33.8 L 35.3 L MCV 89.8 89.9 MCH 30.0 30.2 MCHC 33.4 33.6 RDW 14.5 14.5 Plt Count 199 220 MPV 8.6 8.1 Neut % (Auto) 80.6 H 82.8 H Lymph % (Auto) 12.0 9.6 L [place] % (Auto) 6.0 6.3 Eos % (Auto) 0.9 1.0 Baso % (Auto) 0.4 0.4 Neut # (Auto) 6.8 8.2 H Lymph # (Auto) 1.0 1.0 [place] # (Auto) 0.5 0.6 Eos # (Auto) 0.1 0.1 Baso # (Auto) 0.0 0.0 Sodium 137 141 Potassium 4.4 4.3 Chloride 108 H 105 Carbon Dioxide 18 L 20 L Anion Gap 15.4 H 20.3 H BUN 94 H 94 H Creatinine 11.80 H 12.30 H Estimated Creat Clear 10 10 Estimated GFR 5 L* 5 L* Est GFR ( Amer) 6 L* 6 L* Glucose 99 106 H Calcium 6.6 L 6.6 L Phosphorus 7.6 H Magnesium 1.6 Total Bilirubin 0.6 AST 29 ALT 25 Alkaline Phosphatase 110 Total Creatine Kinase 495 H 538 H* Total Protein 7.2 Albumin 4.1 D Globulin 3.1 Albumin/Globulin Ratio 1.3 Triglycerides 157 H Cholesterol 176 LDL Cholesterol Direct 98.56 L VLDL Cholesterol 31 HDL Cholesterol 26 L Cholesterol/HDL Ratio 6.8 H Urine Color Yellow Urine Appearance Clear Urine pH 6.0 Ur Specific [place] 1.020 Urine Protein 3+ Urine Glucose (UA) Negative Urine Ketones Negative Urine Blood 2+ Urine Nitrate Negative Urine Bilirubin Negative Urine Urobilinogen 0.2 Ur Leukocyte Esterase Negative Urine RBC 10-20 Urine WBC Occasional Ur Squamous Epith Cells Occasional Urine Bacteria Trace DS: Diagnosis Discharge Diagnosis (1) NELA (acute kidney injury): Status: Acute Code(s): N17.9 - Acute kidney failure, unspecified (2) Renal insufficiency: Status: Acute Code(s): N28.9 - Disorder of kidney and ureter, unspecified (3) Dyslipidemia: Status: Acute Code(s): E78.5 - Hyperlipidemia, unspecified (4) Hypothyroidism: Status: Acute Code(s): E03.9 - Hypothyroidism, unspecified Qualifiers: Hypothyroidism type: acquired Qualified Code(s): E03.9 - Hypothyroidism, unspecified (5) Obesity: Status: Acute Code(s): E66.9 - Obesity, unspecified Qualifiers: Obesity type: unspecified obesity type Obesity classification: adult class 3 (BMI >= 40) Body mass index: BMI 45.0-49.9 Meds Home Medications and Allergies Home Medications Medication Instructions Recorded Confirmed Type levothyroxine 125 mcg tablet 125 mcg PO DAILY #90 tabs 04/17/22 05/22/23 Rx (Synthroid) nebivolol 10 mg tablet (Bystolic) 10 mg PO DAILY #30 tabs 05/21/23 05/22/23 Rx pantoprazole 40 mg tablet,delayed 40 mg PO DAILY #30 tabs 05/21/23 05/22/23 Rx release (Protonix) New Prescriptions to Start Prescriptions: Allergies Allergy/AdvReac Type Severity Reaction Status Date / Time No Known Allergies Allergy Verified 05/21/23 21:08 Discharge Plan Disposition Patient Disposition: Xfer Short-Term Hosp Condition: Fair Discharge Order Discharge Orders: Discharge Order (Routine); Ordered 05/22/23 Ordered By: Elena Gould Follow up Plan Prescriptions/Medication Reconciliation: Continued levothyroxine [Synthroid] 125 mcg tablet 125 mcg PO DAILY Qty: 90 3RF nebivolol [Bystolic] 10 mg tablet 10 mg PO DAILY Qty: 30 2RF pantoprazole [Protonix] 40 mg tablet,delayed release (DR/EC) 40 mg PO DAILY Qty: 30 2RF Discontinued rosuvastatin [Crestor] 20 mg tablet 20 mg PO DAILY Qty: 90 3RF Problem Reconciliation Problems Reviewed?: Yes Patient Discharge Instructions ACTIVITY: Continue current activity DIET: continue same diet and renal Stand Alone Forms: Transfer Record Patient Instructions: Acute Kidney Injury Providers Primary Care Provider: Mark Ch Admit Provider: Jose Castillo Attending Provider: Jose Castillo
--- NOTE | 2023-05-22 09:05 | PC.NURSE ---
Patient updated on transfer delay due to ambulance availability. Sitting at [facility] denies needs at this time
[2023-05-22 10:43] LABS: Iron 64 ug/dL (49-181)
[2023-05-22 10:53] LABS: Total Iron Binding Capacity 284 ug/dL (261-462)
[2023-05-22 11:21] LABS: Ferritin 235 ng/ml (17.9-464)
== END 2023-05-22 10:38 | disposition short-term general hospital (02) | DRG 683 ==
LOC: ER 23:10 → 2ND 05-22 00:17
PROVIDERS: Nurse Practitioner Acute Care; Physician Assistant; Admitting Provider Internal Medicine Adolescent Medicine; Emergency Provider Student in an Organized Health Care Education/Training Program; PCP Family Medicine; Visit Provider Internal Medicine Adolescent Medicine
DX: N17.9 Acute kidney failure, unspecified (principal); I16.1 Hypertensive emergency; Z68.43 Body mass index [BMI] 50.0-59.9, adult; M62.82 Rhabdomyolysis; E03.9 Hypothyroidism, unspecified; E78.5 Hyperlipidemia, unspecified; E83.51 Hypocalcemia; E66.01 Morbid (severe) obesity due to excess calories; I10 Essential (primary) hypertension
CPT/HCPCS: 36415; 76770; 80048; 80053; 80061; 81001; 82306; 82550; 82728; 83036; 83540; 83550; 83735; 84100; 84443; 85025; 99291; G0378

== ENCOUNTER 2023-06-17 21:48 | Outpatient (CLI) | payer MEDICAID, SELFPAY ==
[2023-06-17 18:05] LABS: Influenza A, PCR Not Detected (NotDetected); Influenza B, PCR Not Detected (NotDetected)
[2023-06-17 19:57] LABS: Coronavirus 19, PCR Detected (NotDetected)
== END 2023-06-17 23:59 ==
LOC: LAB.DROPOF 21:49
PROVIDERS: PCP Student in an Organized Health Care Education/Training Program; Visit Provider Student in an Organized Health Care Education/Training Program
DX: U07.1 COVID-19 (principal); R51.9 Headache, unspecified; R05.9 Cough, unspecified; R06.02 Shortness of breath
CPT/HCPCS: 87636

== ENCOUNTER 2023-09-03 10:09 | Outpatient (CLI) | payer MEDICAID, SELFPAY ==
[2023-09-03 18:55] LABS: Cholesterol 136 mg/dl (140-200); HDL Cholesterol 27 mg/dl (40-60); Triglycerides 167 mg/dl (30-150); VLDL Cholesterol 33 mg/dL (0-40)
[2023-09-03 19:07] LABS: Direct LDL Cholesterol 73.19 mg/dL (100-129)
[2023-09-03 19:28] LABS: Thyroid Stimulating Hormone 0.81 uIU/mL (0.465-4.68)
[2023-09-05 12:12] LABS: Anti-Centromere B Antibodies <0.2 AI (0.0-0.9); Anti-DNA (DS) Ab Qn <1 IU/mL (0-9); Anti-Jo-1 <0.2 AI (0.0-0.9); Anti-Smith Antibody <0.2 AI (0.0-0.9); Antichromatin Antibodies <0.2 AI (0.0-0.9); Antiscleroderma-70 Antibodies <0.2 AI (0.0-0.9); RNP Antibodies <0.2 AI (0.0-0.9); Sjogren's Anti-SS-A <0.2 AI (0.0-0.9); Sjogren's Anti-SS-B <0.2 AI (0.0-0.9)
== END 2023-09-03 23:59 | disposition home or self-care (01) ==
LOC: LAB.DROPOF 09-04 10:10
PROVIDERS: PCP Student in an Organized Health Care Education/Training Program; Visit Provider Student in an Organized Health Care Education/Training Program
DX: E03.9 Hypothyroidism, unspecified (principal); E78.5 Hyperlipidemia, unspecified; N18.9 Chronic kidney disease, unspecified
CPT/HCPCS: 80061; 84443; 86225; 86235

== ENCOUNTER → 2023-11-22 11:54 | Outpatient (CLI) | payer MEDICAID, SELFPAY | LOC: SL 11-26 11:55 | PROVIDERS: PCP Student in an Organized Health Care Education/Training Program; Visit Provider Student in an Organized Health Care Education/Training Program | DX: G47.30 Sleep apnea, unspecified (principal) | CPT/HCPCS: G0399 ==

== ENCOUNTER 2024-08-28 09:53 | Outpatient (CLI) | payer MEDICAID, SELFPAY ==
--- OUTSIDE RECORDS SUMMARY | 2024-08-28 09:55 | XMS_ITS ---
[facility] Address [address] [place] [address] Phone [phone] Organization [facility] e, NA DOCUMENT DISCLAIMER Multiple document versions may exist, please be sure you review the latest version. The information in the [facility] Continuity of Care Document represents a summary of certain health and medical information. It may not contain the complete medical history for the patient and should be independently verified. The represented time in the document is Eastern Time. PROBLEMS Problem Code Status Onset Date Other disorders of phosphorus metabolism E83.39 Active April 29, 2024 Hyperkalemia E87.5 Active April 03 Encounter for adequacy testing for hemodialysis Z49.31 Active February 25, 2024 Secondary hyperparathyroidism of renal origin N25.81 Active August 30, 2023 Hypertensive chronic kidney disease with stage 1 through stage 4 chronic kidney disease, or unspecified chronic kidney disease I12.9 Active August 12, 2023 End stage renal disease N18.6 Active Apri l 2023 Hyperparathyroidism, unspecified E21.3 Active June 05, 2023 Encounter for immunization Z23 Active J anuary 2023 Encounter for screening for respiratory tuberculosis Z11.1 Active June 05, 2023 Allergy, unspecified, initial encounter T78.40XA A ctive June 05, 2023 Anaphylactic shock, unspecified, initial encounter T78 .2XXA Active June 05, 2023 Pain, unspecified R52 Active May Headache, unspecified R51.9 Active 2023 Fever, unspecified R50.9 Active May 142023 Nausea R11.0 Active June 05 Shortness of breath R06.02 Active June 05, 2023 Pruritus, unspecified L29.9 Active 2023 Fluid overload, unspecified E87.70 Active June 05, 2023 Disorder of phosphorus metabolism, unspecified E83.30 Active June 05, 2023 Unspecified protein-calorie malnutrition E46 Active June 05, 2023 Iron deficiency anemia, unspecified D50.9 Activ e June 05, 2023 Anemia, unspecified D64.9 Active June 05, 2023 Acute metabolic acidosis E87.21 Active Ti king 2023 Dependence on renal dialysis Z99.2 Active June 04, 2023 Hypothyroidism, unspecified E03.9 Active June 04, 2023 Hyperlipidemia, unspecified E78.5 Active June 04, 2023 Morbid (severe) obesity due to excess calories E66.01 Active June 04, 2023 Essential (primary) hypertension I10 Active June 04, 2023 ALLERGIES AND ADVERSE REACTIONS No Known Allergies SOCIAL HISTORY Tobacco Use Status Tobacco Type Unknown if ever consumed tobacco - 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 No Information Available Characteristics of Home environment No Information Available Gender and Sex Information Gender Identity Sexual Orientation Male Heterosexual MEDICATIONS Prescribed Medications for Dialysis Treatments Medication Instructions Dosage Route Start Date End Date Stat Heparin Sodium (Porcine) 1,000 Units/mL Systemic Infusion (Pump), Every Treatment, Total treatment minutes 285, Turn heparin pump off 60 minutes prior to end of treatment 1000 units/hour Intravenous - push October 29, 2023 October 22, 2024 Active Heparin Sodium (Porcine) 1,000 Units/mL Systemic Bolus, Every Treatment, Total treatment minutes 285 21062 units Intravenous - push December 24, 2023 December 22, 2024 Active Vitamin D (Calcitriol) Oral During Dialysis, 3X Week 0.75 mcg Oral July 11, 2024 July 10, 2025 Active Home Medications Medication Instructions Dosage Route Start Date End Date Stat us bumex Unknown July 25, 2023 Active Calcium Acetate 667 mg Take By Mouth Three times a day With Meals 2 Capsule By Mouth April 03, 2024 July 07, 2025 Active calcium acetate(phosphat bind) 667 mg Take by mouth three times a day with meals 2 capsule ORAL April 03, 2024 Active levothyroxine 100 mcg Take by mouth once a day 1 tablet ORAL January 16, 2024 Active nebivolol 10 mg Take by mouth once a day 1 tablet ORAL June 08, 2023 Active nifedipine 60 mg Take by mouth once a day as directed 1 tablet ORAL June 08, 2023 Active pantoprazole 40 mg Take by mouth once a day as directed 1 tablet ORAL June 08, 2023 Active rosuvastatin 20 mg Take by mouth 1 tablet ORAL Sep 2023 Active VITAL SIGNS Post-Treatment Vital Signs Vital Sign Value Date / Time Blood Pressure-sitting 147/78 mmHg August 27, 2024 07:32 AM Blood Pressure-standing 132/76 mmHg August 07:32 AM Heart Rate 69 beats per minute August 27 07:32 AM Respiratory Rate 18 breaths per minute August 27, 2024 07:32 AM Temperature 97.2 deg. F August 27, 2024 0 7:32 AM Weight Vital Sign Value Date / Time Estimated Dry Weight 228 kg July 21 11:59 PM Pre-Dialysis 230.25 kg August 27, 2024 0 7:32 AM Post-Dialysis 228.00 kg August 27, 2024 0 7:32 AM Other Other Value Date / Time Height 193 cm June 05, 2023 12:00 AM Body Mass Index 61.21 kg/m2 July 30, 2024 1 0:15 AM HEALTH CONCERNS Tuberculosis Testing TST Date Administered TST Date Read TST Result 11/12/2023 11/14/2023 Negative (<5) mm LAB RESULTS Hematology Result Type Result Value Relevant Referen ce Range Interpretation Date Folate, Serum 14.8 ng/mL No Reference Ran ge Provided - December 31, 2023 WBC (No Diff) 6.24 1000/mcL 4.80 - 10.80 1000/mcL - March 03, 2024 Platelets 198 1000/mcL 130 - 400 1000/mcL - Octo tierney 2023 Neutrophils 63.9 % 40.0 - 75.0 % - February UIBC (Calc) 221 mcg/dL 155 - 355 mcg/dL - March 03, 2024 TIBC 282 mcg/dL 185 - 515 mcg/dL - March 03, 2024 Transferrin Sat. (Calc) 22 % 20 - 55 % - March 03, 2024 Neutrophils 68.2 % 40.0 - 75.0 % - March 132023 Platelets 192 1000/mcL 130 - 400 1000/mcL - Nove mber 2023 Ferritin 170 ng/mL 22 - 322 ng/mL - March 132023 Transferrin Sat. (Calc) 21 % 20 - 55 % - March 31 TIBC 289 mcg/dL 185 - 515 mcg/dL - March 31, 2024 UIBC (Calc) 229 mcg/dL 155 - 355 mcg/dL - [facility] 2023 WBC (No Diff) 7.65 1000/mcL 4.80 - 10.80 1000/mcL - March 31, 2024 Neutrophils 74.5 % 40.0 - 75.0 % - April 122023 Platelets 207 1000/mcL 130 - 400 1000/mcL - Dece mber 2023 UIBC (Calc) 231 mcg/dL 155 - 355 mcg/dL - Decembe r 2023 TIBC 288 mcg/dL 185 - 515 mcg/dL - April 28, 2024 Transferrin Sat. (Calc) 20 % 20 - 55 % - April 28 WBC (No Diff) 7.79 1000/mcL 4.80 - 10.80 1000/mcL - April 28, 2024 Neutrophils 63.6 % 40.0 - 75.0 % - May Basophils 2.0 % 0.0 - 1.5 % High June 02 025 Eosinophil 7.1 % 0.0 - 7.0 % High June 02 025 Monocytes 10.5 % 3.0 - 10.0 % High June 02, 2024 Lymphocytes 11.6 % 19.0 - 48.0 % Low May MARK 5.2 % 0.0 - 4.0 % High June 02 025 WBC (No Diff) 5.20 1000/mcL 4.80 - 10.80 1000/mcL - June 02, 2024 MCHC 32.7 g/dL 30.0 - 36.0 g/dL - June 02, 2024 MCH 29.3 pg 27.0 - 31.0 pg - May Platelets 169 1000/mcL 130 - 400 1000/mcL - Carlos sujatha 2024 Hemoglobin x 3 36.3 % 42.0 - 54.0 % Low June 02, 2024 RDW 15.0 % 11.5 - 14.5 % High June 02, 2024 UIBC (Calc) 231 mcg/dL 155 - 355 mcg/dL - June 02, 2024 Iron 53 mcg/dL 45 - 160 mcg/dL - May 142024 Transferrin Sat. (Calc) 19 % 20 - 55 % Low June 02, 2024 TIBC 284 mcg/dL 185 - 515 mcg/dL - June 02, 2024 Hemoglobin x 3 36.0 % 42.0 - 54.0 % Low June 09, 2024 Hemoglobin x 3 36.0 % 42.0 - 54.0 % Low Februar y 2024 Hemoglobin x 3 34.8 % 42.0 - 54.0 % Low 2024 Lymphocytes 35.9 % 19.0 - 48.0 % - June 132024 Neutrophils 35.5 % 40.0 - 75.0 % Low June 132024 Eosinophil 4.6 % 0.0 - 7.0 % - June 30, 2024 Monocytes 15.1 % 3.0 - 10.0 % High June 30, 2024 MARK 7.3 % 0.0 - 4.0 % High June 30, 2024 Basophils 1.6 % 0.0 - 1.5 % High June 30, 2024 RDW 14.9 % 11.5 - 14.5 % High June MCHC 31.2 g/dL 30.0 - 36.0 g/dL - June 30, 2024 Hemoglobin x 3 37.5 % 42.0 - 54.0 % Low 2024 MCH 28.6 pg 27.0 - 31.0 pg - June 132024 WBC (No Diff) 2.62 1000/mcL 4.80 - 10.80 1000/mcL Low June 30, 2024 Platelets 167 1000/mcL 130 - 400 1000/mcL - 2024 Transferrin Sat. (Calc) 23 % 20 - 55 % - July 07 TIBC 300 mcg/dL 185 - 515 mcg/dL - July 07, 2024 Ferritin 109 ng/mL 22 - 322 ng/mL - June 142024 Iron 69 mcg/dL 45 - 160 mcg/dL - July 07, 2024 UIBC (Calc) 231 mcg/dL 155 - 355 mcg/dL - 2024 Hemoglobin x 3 36.3 % 42.0 - 54.0 % Low 2024 Hemoglobin x 3 36.0 % 42.0 - 54.0 % Low July Hemoglobin x 3 36.6 % 42.0 - 54.0 % Low July 112024 Basophils 1.8 % 0.0 - 1.5 % High July 28 Eosinophil 4.0 % 0.0 - 7.0 % - July 28 Monocytes 6.6 % 3.0 - 10.0 % - July 28 Lymphocytes 22.5 % 19.0 - 48.0 % - July 28, 2024 Neutrophils 63.2 % 40.0 - 75.0 % - July 28, 2024 WBC (No Diff) 6.72 1000/mcL 4.80 - 10.80 1000/mcL - July 28, 2024 MARK 1.9 % 0.0 - 4.0 % - July 28 Platelets 185 1000/mcL 130 - 400 1000/mcL - 2024 Hemoglobin x 3 38.4 % 42.0 - 54.0 % Low July 112024 RDW 15.0 % 11.5 - 14.5 % High July 28 025 MCHC 33.1 g/dL 30.0 - 36.0 g/dL - July MCH 30.3 pg 27.0 - 31.0 pg - July 28, 2024 UIBC (Calc) 234 mcg/dL 155 - 355 mcg/dL - July 112024 TIBC 286 mcg/dL 185 - 515 mcg/dL - July Iron 52 mcg/dL 45 - 160 mcg/dL - July 28, 2024 Transferrin Sat. (Calc) 18 % 20 - 55 % Low July 28, 2024 HGB 12.5 g/dL 14.0 - 18.0 g/dL Low July Hemoglobin x 3 37.5 % 42.0 - 54.0 % Low July 122024 Hemoglobin x 3 39.9 % 42.0 - 54.0 % Low August HGB 13.3 g/dL 14.0 - 18.0 g/dL Low August HGB 12.8 g/dL 14.0 - 18.0 g/dL Low August Hemoglobin x 3 38.4 % 42.0 - 54.0 % Low August HGB 13.0 g/dL 14.0 - 18.0 g/dL Low August Hemoglobin x 3 39.0 % 42.0 - 54.0 % Low August 112024 Metabolic/Renal Result Type Result Value Relevant Referen ce Range Interpretation Date Potassium 7.3 mEq/L 3.5 - 5.1 mEq/L Critically high Carlos sujatha2024 Sodium 142 mEq/L 136 - 145 mEq/L - May 142024 Creatinine, Serum 10.82 mg/dL 0.60 - 1.30 mg/dL High June 02, 2024 Bicarbonate 19 mEq/L 20 - 31 mEq/L Low May Chloride 108 mEq/L 96 - 108 mEq/L - May Potassium 5.0 mEq/L 3.5 - 5.1 mEq/L - May 142024 BUN 54 mg/dL 6 - 19 mg/dL High June 16, 2024 BUN, Post 17 mg/dL 6 - 19 mg/dL - June 16, 2024 URR, Calc 69 % 65 - 80 % - June 16 Creatinine, Serum 10.88 mg/dL 0.60 - 1.30 mg/dL High June 30, 2024 URR, Calc 69 % 65 - 80 % - July 07 BUN, Post 18 mg/dL 6 - 19 mg/dL - July 07, 2024 Chloride 106 mEq/L 96 - 108 mEq/L - June 142024 Bicarbonate 22 mEq/L 20 - 31 mEq/L - June 142024 BUN/Creat Ratio 5.6 10.0 - 20.0 Low July 07, 2024 Creatinine, Serum 10.50 mg/dL 0.60 - 1.30 mg/dL High July 07, 2024 Potassium 4.9 mEq/L 3.5 - 5.1 mEq/L - July 07, 2024 Sodium 141 mEq/L 136 - 145 mEq/L - July 07, 2024 BUN 59 mg/dL 6 - 19 mg/dL High July 07, 2024 BUN 59 mg/dL 6 - 19 mg/dL High July 14 URR, Calc 73 % 65 - 80 % - July 14, 2024 BUN, Post 16 mg/dL 6 - 19 mg/dL - July 14 Creatinine, Serum 10.81 mg/dL 0.60 - 1.30 mg/dL High July 28, 2024 Sodium 143 mEq/L 136 - 145 mEq/L - July 28, 2024 Potassium 5.1 mEq/L 3.5 - 5.1 mEq/L - July 28, 2024 Bicarbonate 23 mEq/L 20 - 31 mEq/L - July 28, 2024 Chloride 106 mEq/L 96 - 108 mEq/L - July 28, 2024 BUN, Post 20 mg/dL 6 - 19 mg/dL High August 18 BUN 68 mg/dL 6 - 19 mg/dL High August 18 URR, Calc 71 % 65 - 80 % - August 18, 2024 HD Adequacy Result Type Result Value Relevant Referen ce Range Interpretation Date Krt/V 0.00 No Reference Ran ge Provided - March 03, 2024 Krt/V 0.00 No Reference Ran ge Provided - March 17, 2024 Krt/V 0.00 No Reference Ran ge Provided - April 14, 2024 Krt/V 0.00 No Reference Ran ge Provided - May 26, 2024 Krt/V 0.00 No Reference Ran ge Provided - May 28, 2024 eKt/V ([place]) 1.16 No Reference Range Provided - June 16, 2024 spKt/V Gotch 1.31 No Reference Ran ge Provided - June 16, 2024 wstdKt/V, residual 0.0 No Reference Range Provided - June 16, 2024 wstdKt/V without residual 2.3 No Reference Range Provided - June 16, 2024 wstdKt/V 2.3 No Reference Ran ge Provided - June 16, 2024 Krt/V 0.00 No Reference Ran ge Provided - June 16, 2024 spKt/V (Daugirdas II) 1.31 No Reference Range Provided - June 16, 2024 spKt/V (Daugirdas II) 1.34 No Reference Range Provided - July 07, 2024 eKt/V ([place]) 1.19 No Reference Range Provided - July 07, 2024 spKt/V (Daugirdas II) 1.48 No Reference Range Provided - July 14, 2024 wstdKt/V without residual 2.4 No Reference Range Provided - July 14, 2024 wstdKt/V 2.4 No Reference Ran ge Provided - July 14, 2024 wstdKt/V, residual 0.0 No Reference Range Provided - July 14, 2024 eKt/V ([place]) 1.32 No Reference Range Provided - July 14, 2024 spKt/V Gotch 1.48 No Reference Ran ge Provided - July 14, 2024 Krt/V 0.00 No Reference Ran ge Provided - July 14, 2024 spKt/V Got 1.43 No Reference Ran ge Provided - August 18, 2024 wstdKt/V without residual 2.3 No Reference Range Provided - August 18, 2024 spKt/V (Daugirdas II) 1.39 No Reference Range Provided - August 18, 2024 eKt/V ([place]) 1.22 No Reference Range Provided - August 18, 2024 Krt/V 0.00 No Reference Ran ge Provided - August 18, 2024 wstdKt/V, residual 0.0 No Reference Range Provided - August 18, 2024 wstdKt/V 2.3 No Reference Ran ge Provided - August 18, 2024 Bone/Mineral Result Type Result Value Relevant Referen ce Range Interpretation Date Magnesium 2.1 mg/dL 1.6 - 2.6 mg/dL - September 30 Magnesium 2.1 mg/dL 1.6 - 2.6 mg/dL - December Vitamin D 25 Hydroxy 11.4 ng/mL 30.0 - 100.0 ng/mL Low December 31, 2023 PTH-Intact, Plasma 470 pg/mL 16 - 80 pg/mL High Mar Magnesium 2.3 mg/dL 1.6 - 2.6 mg/dL - March 31, 2024 PTH-Intact, Plasma 558 pg/mL 16 - 80 pg/mL High Apr Phosphorus 5.1 mg/dL 2.6 - 4.5 mg/dL High May 142024 Calcium, Total 9.1 mg/dL 8.7 - 10.4 mg/dL - 2024 Alkaline Phosphatase 97 U/L 40 - 129 U/L - [facility]2024 Ca x P Product 46 0 - 54 - May Corrected Ca x P Product 45 0 - 54 - June 02, 2024 PTH-Intact, Plasma 458 pg/mL 16 - 80 pg/mL High Jun 2024 Vitamin D 25 Hydroxy 9.3 ng/mL 30.0 - 100.0 ng/mL Low June 30, 2024 Magnesium 2.2 mg/dL 1.6 - 2.6 mg/dL - July 07, 2024 Ca x P Product 50 0 - 54 - June 142024 Phosphorus 5.7 mg/dL 2.6 - 4.5 mg/dL High July 07, 2024 Alkaline Phosphatase 98 U/L 40 - 129 [facility] Calcium, Total 8.8 mg/dL 8.7 - 10.4 mg/dL - uary 2024 PTH-Intact, Plasma 403 pg/mL 16 - 80 pg/mL High Mar 2024 Phosphorus 4.9 mg/dL 2.6 - 4.5 mg/dL High July 28, 2024 Ca x P Product 46 0 - 54 - July 28, 2024 Calcium, Total 9.4 mg/dL 8.7 - 10.4 mg/dL - Juliocesar h 2024 Alkaline Phosphatase 106 U/L 40 - 129 U/L - [facility] 2024 Corrected Ca x P Product 45 0 - 54 - July 28, 2024 Liver/Nutrition Result Type Result Value Relevant Referen ce Range Interpretation Date SGOT (AST) 16 U/L 13 - 39 U/L - June 02 025 Albumin (BCG) 4.3 g/dL 3.5 - 5.2 g/dL - June 02, 2024 Total Protein 7.0 g/dL 6.0 - 8.5 g/dL - June 02, 2024 A/G Ratio 1.6 1.0 - 2.0 - June 02 25 Globulin (Calc) 2.7 g/dL 2.0 - 4.0 g/dL - 2024 eNPCR 0.72 No Reference Ran ge Provided - June 16, 2024 Albumin (BCG) 4.7 g/dL 3.5 - 5.2 g/dL - 2024 Total Protein 7.4 g/dL 6.0 - 8.5 g/dL - 2024 A/G Ratio 1.7 1.0 - 2.0 - June 30 025 Globulin (Calc) 2.7 g/dL 2.0 - 4.0 g/dL - 2024 Glucose 80 mg/dL 70 - 100 mg/dL - June 142024 SGOT (AST) 12 U/L 13 - 39 U/L Low July 07, 2024 eNPCR 0.80 No Reference Ran ge Provided - July 14, 2024 Total Protein 7.0 g/dL 6.0 - 8.5 g/dL - July 112024 Albumin (BCG) 4.4 g/dL 3.5 - 5.2 g/dL - July 112024 SGOT (AST) 17 U/L 13 - 39 U/L - July 28 A/G Ratio 1.7 1.0 - 2.0 - July 28, 2024 Globulin (Calc) 2.6 g/dL 2.0 - 4.0 g/dL - July 28, 2024 eNPCR 0.90 No Reference Ran ge Provided - August 18, 2024 Immunochemistry Result Type Result Value Relevant Reference Range Interpre tation Date HCV s/co ratio 0.02 0.00 - 0.79 - December HCV s/co ratio < 0.02 0.00 - 0.79 - June 30, 2024 Trace Elements Result Type Result Value Relevant Reference Range Interpre tation Date Aluminum < 5 mcg/L 0 - 10 mcg/L - December 30 024 Aluminum < 5 mcg/L 0 - 10 mcg/L - June 30, 2024 Infectious Diseases Result Type Result Value Relevant Referen ce Range Interpretation Date Hep B Surface Ab (anti-HBs) 29 mIU/mL No Reference Range Provided - June 30, 2024 HCV Ab (anti-HCV) Nonreactive No Reference R nan Provided - June 30, 2024 Hep B Surface Ag (HBsAg) Negative No Reference Range Provided - July 28, 2024 DIALYSIS PRESCRIPTION Conventional Hemodialysis Data Element Value Order Date/Time July 21, 2024 Frequency 3X Week Treatment Days TueThuSat Dialyzer Optiflux 250NRe Treatment Time (Total Minutes) 255 min Blood Flow Rate (mL/min) 500 mL/min Dialysate Flow Rate Autoflow 2.0 Estimated Dry Weight 228 kg Dialysate Concentrate 2.0 K, 2.5 Ca, 1.0 Mg, 100 Dextrose (G2251) Sodium (mEq/L) 137 mEq/L Bicarb Machine Setting (mEq/L) 35 mEq/L Dialysis Access Hemodialysis-AV Fist paula-Standard, Left Upper Arm, Other/Unknown Access Placed on August 28, 2023 Arterial Needle Size 14g1 Venous Needle Size 14g1 IMMUNIZATIONS Vaccine Date Dose Route Status Flu Vaccine - Flucelvax Trivalent March 03, 2024 0.5 mL Intramuscular Completed HEPLISAV-B, Series 4 of 4 October 29, 2023 20.0 mcg Intramu scular Completed Heplisav-B Series 3, Series 3 of 4 August 27, 2023 20.0 mcg Intramuscular Completed PREVNAR July 11, 2023 0.5 mL Intramuscular Comp leted HEPLISAV-B, Series 1 of 4 July 02, 2023 20.0 mcg Int ramuscular Completed Flu Vaccine - Flublok Quadrivalent June 11, 2023 0.5 mL Intramuscular Completed TRANSPLANT WAITLIST STATUS No Information on Transplant Waitlist Status ADVANCE DIRECTIVES Directive Description Ordered By Effective Date Resuscitation status Full Code Osiel Choudhary Aug 12, 2024 DIALYSIS TREATMENTS Conventional Hemodialysis Date Pre-Treatment Vitals Post-Treatment Irma ls Duration (hr) BFR (mL/min) Dialysate Dialyzer Dialysis Access Meds Admin August 22, 2024 Weight 230.60 kg Weight 227.50 kg 04:18:00 500 2.0 K, 2.5 Ca, 1.0 Mg, 100 Dextrose (G2251) Optifl ux 250nre Blood Pressure-sitting 140/83 mmHg Blood Pressure-sit ting 125/79 mmHg Blood Pressure-standing 151/81 mmHg Blood Pressure-st anding 136/80 mmHg Heart Rate 65 beats per minute Heart Rate 88 beats per minute Respiratory Rate 18 breaths per minute Respiratory Rate 18 breaths per minute Temperature 97.5 deg. F Temperature 97.5 deg. F August 25, 2024 Weight 230.70 kg Weight 228.20 kg 04:18:00 470 2.0 K, 2.5 Ca, 1.0 Mg, 100 Dextrose (G2251) Optiflux 250nre Hemodialysis-AV Fistula-Standard, Left Upper Arm, Other/Unknown Access Placed on August 28, 2023 Heparin Sodium (Porcine) 1,000 Units/mL Systemic; [id number],Intravenous - push Heparin Sodium (Porcine) 1,000 Units/mL Systemic; 1000units,Intravenous - push Vitamin D (Calcitriol) Oral; 0.75mcg,Oral Blood Pressure-sitting 141/80 mmHg Blood Pressure-sit ting 121/56 mmHg Blood Pressure-standing 161/83 mmHg Blood Pressure-st anding 128/70 mmHg Heart Rate 73 beats per minute Heart Rate 74 beats per minute Respiratory Rate 20 breaths per minute Respiratory Rate 20 breaths per minute Temperature 98.2 deg. F Temperature 97.0 deg. F August 27, 2024 Weight 230.25 kg Weight 228.00 kg 04:05:00 500 2.0 K, 2.5 Ca, 1.0 Mg, 100 Dextrose (G2251) Optiflux 250nre Hemodialysis-AV Fistula-Standard, Left Upper Arm, Other/Unknown Access Placed on August 28, 2023 Heparin Sodium (Porcine) 1,000 Units/mL Systemic; 1000units,Intravenous - push Heparin Sodium (Porcine) 1,000 Units/mL Systemic; [id number],Intravenous - push Vitamin D (Calcitriol) Oral; 0.75mcg,Oral Blood Pressure-sitting 160/81 mmHg Blood Pressure-sit ting 147/78 mmHg Blood Pressure-standing 147/89 mmHg Blood Pressure-st anding 132/76 mmHg Heart Rate 73 beats per minute Heart Rate 69 beats per minute Respiratory Rate 18 breaths per minute Respiratory Rate 18 breaths per minute Temperature 97.1 deg. F Temperature 97.2 deg. F
--- NOTE | 2024-08-28 10:00 | CA_ITS ---
FINAL REPORT CLINICAL HISTORY: HTN,MEDICAL RENAL DISEASE,PT ON DIALYSIS,MORBIB OBESITY COMPARISON: None FINDINGS: Aorta velocity: 61 cm/sec Right kidney: 9.6 x 4.2 x 6.1 cm. No evidence of hydronephrosis or mass. Right intrarenal RI: 0.82 Right renal artery velocity: 81 cm/sec. Right RAR (Renal artery-Aortic Ratio): 1.3 Left Kidney: 10.4 x 3.9 x 5.9 cm. No evidence of hydronephrosis or mass. Left intrarenal RI: 0.76 Left renal artery velocity: 94 cm/sec. Left RAR (Renal Artery-Aortic Ratio): 1.6 IMPRESSION: No evidence of significant renal artery stenosis. CT angiogram or postcontrast MR angiogram would be more sensitive for evaluation of possible renal artery stenosis. Reviewed, Interpreted and Dictated by Cyrus Mckeon MD Transcribed by Haley Pendleton Authenticated and [facility]
== END 2024-08-28 23:59 | disposition home or self-care (01) ==
LOC: RT 09:54
PROVIDERS: PCP Family Medicine; Visit Provider Family Medicine
DX: I10 Essential (primary) hypertension (principal)
CPT/HCPCS: 93976

== ENCOUNTER 2024-12-11 09:55 | Outpatient (CLI) | payer MEDICAID, SELFPAY ==
[2024-12-11 16:02] LABS: Hematocrit 40.7 % (42.0-52.0); Hemoglobin 12.9 g/dL (14.1-18.0); Immature Granulocytes % 0.6 %; Mean Corpuscular HGB Conc 31.7 g/dL (31.8-35.4); Mean Corpuscular Hemoglobin 27.9 pg (27.0-31.2); Mean Corpuscular Volume 87.9 fl (80-94); Nucleated Red Blood Cells % 0 %; Platelet Count 218 K/mm3 (142-424); Red Blood Count 4.63 M/mm3 (4.60-6.20); Red Cell Distribution Width-SD 47.1 fL; White Blood Count 6.4 K/mm3 (4.8-10.8)
[2024-12-11 16:24] LABS: Hemoglobin A1C 4.6 % (4.0-6.0)
[2024-12-11 16:36] LABS: Alanine Aminotransferase 16 U/L (12-78); Albumin Level 4.4 g/dl (3.5-5.0); Albumin/Globulin Ratio 1.6 (1.1-1.8); Alkaline Phosphatase 115 U/L (38-126); Anion Gap 16.1 mEq/L (5-15); Aspartate Amino Transferase 20 U/L (17-59); Bilirubin,Total 0.6 mg/dl (0.2-1.3); Blood Urea Nitrogen 29 mg/dl (9-20); Calcium 9.2 mg/dl (8.4-10.2); Carbon Dioxide 33 mmol/L (22.0-30.0); Chloride 96 mmol/L (98-107); Cholesterol 125 mg/dl (140-200); Estimated Glomerular Filt Rate 7 ml/min (>60); GFR (African American) 9 ML/MIN (>60); Globulin 2.7 g/dL (1.3-3.2); Glucose 103 mg/dl (74-100); HDL Cholesterol 33 mg/dl (40-60); Potassium 4.1 mmoL/L (3.5-5.1); Sodium 141 mmol/L (136-145); Total Protein,Serum 7.1 g/dl (6.3-8.2); Triglycerides 109 mg/dl (30-150)
[2024-12-11 16:42] LABS: Creatinine,Serum 8.30 mg/dl (0.66-1.25)
[2024-12-11 17:06] LABS: Thyroid Stimulating Hormone 1.36 uIU/mL (0.465-4.68)
[2024-12-11 17:22] LABS: Hepatitis C Ab Qual. W/ RFX NEGATIVE (Negative)
[2024-12-12 08:32] LABS: Hepatitis B Surface Antigen Negative (Negative)
--- OUTSIDE RECORDS SUMMARY | 2024-12-12 10:19 | XMS_ITS | Clinical Summary ---
Author Organization [facility] Address [address] [place] [address] Care Team Providers Care Drone Operator Name Role Phone Mark Ch MD Primary Care Provider [phone] Allergies No known active allergies Medications levothyroxine (SYNTHROID, LEVOTHROID) 125 MCG tablet Take 1 tablet by mouth Daily. Active rosuvastatin (CRESTOR) 20 MG tablet Take 1 tablet by mouth Every Night. Active famotidine (PEPCID) 10 MG tablet Take 1 tablet by mouth 2 (Two) Times a Day. Unsure of dosage Active nebivolol (BYSTOLIC) 10 MG tablet Take 1 tablet by mouth Daily. 30 tablet 1 06/04/2023 Active NIFEdipine CC (ADALAT CC) 60 MG 24 hr tablet Take 1 tablet by mouth Daily. 30 tablet 06/04/2023 11:31 AM EST 06/04/2023 Active PHARMACY MEDS TO BED CONSULT Use Daily. 06/04/2023 Active Active Problems Problem Noted Date Diagnosed Date ARF (acute renal failure) 05/25/2023 Obesity, morbid, BMI 50 or higher 05/25/2023 Uncontrolled hypertension 05/25/2023 Hypothyroidism (acquired) 05/25/2023 Family History Medical History Relation Name Comments Autoimmune disease Neg Hx Kidney disease Neg Hx Social History Tobacco Use Types Packs/Day Years Used Date Smoking Tobacco: Never Passive Smoke Exposure: Never Smokeless Tobacco: Never Alcohol Use Standard Drinks/Week Comments Never 0 (1 standard drink = 0.6 oz pur e alcohol) C Utilities Answer Date Recorded In the past 12 months has [employer], gas, oil, or water company threatened to shut off services in your home? No 05/27/2023 AUDIT-C Answer Date Recorded Q1: How often do you have a drink containing alcohol? Never 05/27/2023 Q2: How many drinks containi ng alcohol do you have on a typical day when you are drinking? Patient does not drink Q3: How often do you have si x or more drinks on one occasion? Never 05/27/2023 Overall Financial Resource Strain (CARDIA) Answe r Date Recorded How hard is it for you to pa y for the very basics like food, housing, medical care, and heating? Not hard at all 05/27/2023 [facility] [place] [facility] - Occupational Stress Questionnaire Answer Date Recorded Do you feel stress - tense, restless, nervous, or anxious, or unable to sleep at night because your mind is troubled all the time - these days? Not at all 05/27/2023 Exercise Vital Sign Answer Date Recorde d On average, how many days pe r week do you engage in moderate to strenuous exercise (like a brisk walk)? 0 days 05/27/2023 On average, how many minutes do you engage in exercise at this level? 0 min 05/27/2023 Hunger Vital Sign Answer Date Recorded Within the past 12 months, y ou worried that your food would run out before you got the money to buy more. Never true 05/27/19 24 Within the past 12 months, t he food you bought just didn't last and you didn't have money to get more. Never true 05/27/2023 PRAPARE - Transportation Answer Date Re corded In the past 12 months, has l ack of transportation kept you from medical appointments or from getting medications? No 05/13 In the past 12 months, has l ack of transportation kept you from meetings, work, or from getting things needed for daily living? No 05/27/2023 Abuse Screen Answer Date Recorded Feels Unsafe at Home or Work/School no 05/27/2023 Feels Threatened by Someone no 05/13 Does Anyone Try to Keep You From Having Contact with Others or Doing Things Outside Your Home? no 05/27/2023 Physical Signs of Abuse Present no 05/27/2023 Housing Stability Answer Date Recorded Current Living Arrangements home 05/13 Potentially Unsafe Housing Conditions none 05/27/2023 Family and Community Support Answer Manpreet e Recorded If for any reason you need h elp with day-to-day activities such as bathing, preparing meals, shopping, managing finances, etc., do you get the help you need? I don't need any help 05/27/2023 How often do you feel lonely or isolated from those around you? Never 05/27/2023 Employment Answer Date Recorded Do you want help finding or keeping work or a job? I do not need or want help 05/27/2023 Disabilities Answer Date Recorded Difficulty Concentrating, Remembering or Making Decisions no 05/27/2023 Difficulty Managing Errands Independently no 05/27/2023 Education Answer Date Recorded Do you want help with school or training? For example, starting or completing job training or getting a high school diploma, GED or equivalent No 05/27/2023 Preferred Language Danish 05/27/2023 PHQ-2 Answer Date Recorded Retired PHQ-9: Brief Depression Severity Measure Score 0 05/27/2023 Sex and Gender Information Value Date Recorded Sex Assigned at Not on file Legal Sex Male 2:04 AM EST Gender Identity Not on file Sexual Orientation Not on file Last Filed Vital Signs Vital Sign Reading Time Taken Comments Blood Pressure 135/76 08/05/2023 1:42 PM EDT Pulse 81 08/05/2023 1:42 PM EDT Temperature 36.5 C (97.7 F) 08/05/2023 7:25 AM EDT Respiratory Rate 18 08/05/2023 12:30 PM EDT Oxygen Saturation 94% 08/05/2023 12:30 PM EDT Inhaled Oxygen Concentration - - Weight 234 kg (515 lb) 08/05/2023 7:25 AM EDT Height 193 cm (6' 4 ) 08/05/2023 7:25 AM EDT Body Mass Index 62.69 08/05/2023 7:25 AM EDT Plan of Treatment Health Maintenance Due Date Last Done Comments TDAP/TD VACCINES (1 - Tdap) 12/01/2003 ANNUAL PHYSICAL 06/01/2023 COVID-19 Vaccine (3 - 2023-2 5 season) 2024 11/04/2020, 10/07/2020 INFLUENZA VACCINE 02/10/2025 HEPATITIS C SCREENING Completed 05/28/2023 Pneumococcal Vaccine 0-49 Aged Out No longer eligible based on patient's age to complete this topic Procedures Procedure Name Priority Date/Time Associated Diagnosis Comments HEPATITIS PANEL, ACUTE Routine 05/28/2023 2:23 PM EST from Last 3 Months or Most Recently Relevant to Health Maintenance Results * Hepatitis Panel, Acute (05/28/2023 2:23 PM EST) Hepatitis B Surface Ag Non-Reacti ve Non-Reacti ve 05/28/2023 3:17 PM EST [facility] Hep A IgM Non-Reacti ve Non-Reacti ve 05/28/2023 3:17 PM EST [facility] Hep B C IgM Non-Reacti ve Non-Reacti ve 05/28/2023 3:17 PM EST [facility] Hepatitis C Ab Non-Reacti ve Non-Reacti ve 05/28/2023 3:17 PM EST [facility] Blood Venipuncture / Unknown 05/28/2023 2:23 PM EST 05/28/2023 2:46 PM EST Narrative [facility] - 05/28/2023 3:17 PM EST Results may be falsely decreased if patient taking Biotin. Jose Casiano MD LAB BLOOD ORDERABLES Fi nal Result [facility]
[address] [place] [address], from Last 3 Months or Most Recently Relevant to Health Maintenance Insurance [employer] MEDICAID [place] Advance Directives * CPR (Attempt to Resuscitate) (Latest Code Status on File) Date Activated Date Inactivated Comments 05/25/2023 8:25 PM 06/04/2023 4:54 PM Question Answer Comments Code Status (Patient has no pulse and is not breathing): CPR (Attempt to Resuscitate) Medical Interventions (Patie nt has pulse or is breathing): Full Support Care Teams Drone Operator Relationship Specialty Start Date End Date Mark Ch MD [address] [place] [address] PCP - General Family Medicine 05/25/23
--- OUTSIDE RECORDS SUMMARY | 2024-12-12 10:19 | XMS_ITS | Clinical Summary ---
Author Organization [facility] ([place], [place], [place], [place]) Address [address] [place] [address] Care Team Providers Care Secret Service Agent Name Role Phone Mark Ch MD Primary Care Provider Allergies No known active allergies Medications nebivoloL (BYSTOLIC) 10 MG tablet Take 1 tablet (10 mg total) by mouth daily. Active pantoprazole (PROTONIX) 40 MG tablet Take 1 tablet (40 mg total) by mouth daily. Active rosuvastatin (CRESTOR) 20 MG tablet Take 1 tablet (20 mg total) by mouth daily. Active levothyroxine (SYNTHROID, LEVOTHROID) 125 MCG tablet Take 1 tablet (125 mcg total) by mouth Every morning on an empty stomach. Active bumetanide (BUMEX) 2 MG tablet Take 1 tablet (2 mg total) by mouth daily. Active calcium acetate,phospha t bind, (PHOSLO) 667 mg capsule Take 1 capsule (667 mg total) by mouth 3 (three) times daily. 07/19/2023 Active Active Problems Problem Noted Date Diagnosed Date Hypertension 11/18/2023 Hypothyroidism 11/18/2023 Morbid obesity 11/18/2023 Hypercholesteremia 11/18/2023 End stage renal disease 11/18/2023 Overview (11/18/2023): dialysis T, TH, SAT Acute kidney injury 05/22/2023 Acute renal failure (ARF) 05/22/2023 Social History Tobacco Use Types Packs/Day Years Used Date Smoking Tobacco: Never Smokeless Tobacco: Never Tobacco Cessation:Counseling Given: Yes Alcohol Use Standard Drinks/Week Comments Never 0 (1 standard drink = 0.6 oz pur e alcohol) PRAPARE - Transportation Answer Date Re corded In the past 12 months, has l ack of transportation kept you from medical appointments or from getting medications? No 05/23/2023 Lack of Transportation (Non-Medical) Not on file 05/23/2023 Food Insecurity Answer Date Recorded Food run out past 12 months Not on file 05/13 Food did not last past 12 months Not on file 05/22/2023 Employment Answer Date Recorded Help finding and keeping a job Not on file 0 05/22/2023 Family and Community Support Answer Manpreet e Recorded Help with Day to Day Activities Not on file 05/22/2023 Feeling Lonely or Isolated Not on file 05/22 Educational Attainment Answer Date Eyad rded Speak language other than Khmer at home Not on file 05/22/2023 Want help with school or training Not on file 05/22/2023 Substance Use Answer Date Recorded Used prescription meds for non-medical reasons N ot on file 05/22/2023 Used illegal drugs past 12 months Not on file 05/22/2023 Sex and Gender Information Value Date Recorded Sex Assigned at Not on file 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 Gender Identity Not on file Sexual Orientation Not on file Last Filed Vital Signs Vital Sign Reading Time Taken Comments Blood Pressure 122/55 11/18/2023 9:55 AM EDT Pulse 70 11/18/2023 9:55 AM EDT Temperature 36.1 C (97 F) 11/18/2023 9:40 AM EDT warm blankets applied to patient Respiratory Rate 18 11/18/2023 9:55 AM EDT Oxygen Saturation 94% 11/18/2023 9:5 5 AM EDT RA Inhaled Oxygen Concentration - - Weight 233.2 kg (514 lb 3.2 oz) 11/18/2023 6:00 AM EDT Height 195.6 cm (6' 5 ) 11/18/2023 6:00 AM EDT Body Mass Index 60.98 11/18/2023 6:00 AM EDT Plan of Treatment Health Maintenance Due Date Last Done Comments Depression Screening (12+) 1996 DTAP/TDAP/TD VACCINES (1 - Tdap) 12/01/2003 Lipid Panel 12/01/2019 COVID-19 VACCINE (3 - 2023-2 5 season) 2024 11/04/2020, 10/07/2020 Tobacco Cessation Counseling and Screening (12+) 11/17/2024 11/18/2023 Influenza Vaccine (#1) 2025 06/11/2023 HIV Screening Completed 05/23/2023 Hepatitis C Screening Completed 05/23/2023 Pneumococcal Vaccine: 0-49 Years Aged Out 07/11/2023 No longer eligible b ased on patient's age to complete this topic Procedures Procedure Name Priority Date/Time Associated Diagnosis Comments HEPATITIS PANEL, ACUTE Routine 05/23/2023 9:07 AM EST HIV 1/2 AG/AB COMBO Routine 05/23/2023 9 :07 AM EST from Last 3 Months or Most Recently Relevant to Health Maintenance Results * HIV 1/2 AG/AB Combo (05/23/2023 9:07 AM EST) HIV-1 P24 Antigen Nonreactive Nonreactive 05/23/2023 10:47 AM EST [facility] Comment: The Combo HIV procedure is a fourth generation HIV test which detects BOTH p24 antigen AND HIV antibodies to HIV virus types 0, 1, and 2. A reactive result does not distinguish between the antigen or the antibody and does not specify which antibody is present. Additional testing is required to differentiate the component causing the reactive result. Biotin supplements can cause clinically significant incorrect lab results. The FDA has seen an increase in the number of adverse events 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 Blood Venipuncture / Unknown 05/23/2023 9:07 AM EST 05/23/2023 9:16 AM EST us Alex Stewart MD LAB BLOOD ORDERABLES Final Resul t [facility] [address] [phone] * Hepatitis panel, acute (05/23/2023 9:07 AM EST) Hep A IgM Nonreactive Nonreactive, Equivocal 05/23/2023 10:[address] [facility] Hep B C IgM Nonreactive Nonreactive 05/23/2023 10:[address] [facility] Hepatitis B surface antigen Nonreactive Nonreactive, Equivocal 05/23/2023 10:41 AM EST [facility] Hepatitis C Ab Nonreactive Nonreactive, Equivocal 05/23/2023 10:[address] [facility] Blood Venipuncture / Unknown 05/23/2023 9:07 AM EST 05/23/2023 9:16 AM EST [facility] - 05/23/2023 10:41 AM EST Hepatitis A Antibody IgM: (a) A negative test result does not exclude the possibility of exposure to the hepatitis A virus. (b) This test can be used to determine if a patient has or recently had an acute or asymptomatic hepatitis A infection. (c) A reactive result does not exclude co-infection by another hepatitis virus. Biotin supplements can cause clinically significant incorrect lab results. The FDA has seen an increase in the number of adverse events 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 Hepatitis B Core Antibody IgM: A reactive anti-HBc IgM result does not exclude co-infection by another hepatitis virus. Biotin supplements can cause clinically significant incorrect lab results. The FDA has seen an increase in the number of adverse events 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 Hepatitis B Surface Antibody Qual: This test does not differentiate between a vaccine induced immune response and an immune response induced by infection with HBV. Individuals that have received blood component therapies, (e.g. whole blood, plasma, immunoglobulin) administered during the previous 3 to 6 months may have a false reactive anti HBs due to passive transfer of anti HBs. A positive anti HBs result does not exclude co infection by another hepatitis virus. Biotin supplements can cause clinically significant incorrect lab results. The FDA has seen an increase in the number of adverse events 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 Hepatitis B Surface Antigen: This test may not detect all HBV mutants. If acute or chronic HBV infection is suspected and this test is non-reactive other HBV markers should be tested. Biotin supplements can cause clinically significant incorrect lab results. The FDA has seen an increase in the number of adverse events 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 Hepatitis C Antibody: A negative test result does not exclude the possibility of exposure to the hepatitis C virus and a reactive result does not exclude co-infection by another hepatitis virus. Biotin supplements can cause clinically significant incorrect lab results. The FDA has seen an increase in the number of adverse events 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 Alex Stewart MD LAB BLOOD ORDERABLES Final Resul t [facility] [address] [phone] from Last 3 Months or Most Recently Relevant to Health Maintenance Insurance [employer] MEDICAID Advance Directives For more information, please contact: [phone] * Full Code (Latest Code Status on File) Date Activated Date Inactivated Comments 11/18/2023 6:34 AM 11/18/2023 11:29 AM * Full Code Date Activated Date Inactivated Comments 08/28/2023 10:31 AM 08/29/2023 12:17 PM * Full Code Date Activated Date Inactivated Comments 05/22/2023 11:56 AM 05/25/2023 5:48 PM Care Teams Secret Service Agent Relationship Specialty Start Date End Date Mark Ch MD [address] [place] [address] PCP - General Family Medicine 09/09/23
--- OUTSIDE RECORDS SUMMARY | 2024-12-12 10:19 | XMS_ITS | Clinical Summary ---
Author Organization [facility] Address [address] [place] [address] Care Team Providers Care Needle Maker Name Role Phone Unavailable Primary Care Provider Unavailabl e Allergies No known active allergies Social History Tobacco Use Types Packs/Day Years Used Date Smoking Tobacco: Never Smokeless Tobacco: Never Tobacco Cessation:Counseling Given: Not Answered Alcohol Use Standard Drinks/Week Comments Never 0 (1 standard drink = 0.6 oz pur e alcohol) Sex and Gender Information Value Date Recorded Sex Assigned at Not on file Legal Sex Male 10:29 AM EST Gender Identity Not on file Sexual Orientation Not on file Last Filed Vital Signs Vital Sign Reading Time Taken Comments Blood Pressure 188/104 05/25/2023 5:27 PM EST Pulse 77 05/25/2023 5:27 PM EST Temperature 36.4 C (97.6 F) 05/25/2023 5:27 PM EST Respiratory Rate 20 05/25/2023 5:27 PM EST Oxygen Saturation 97% 05/25/2023 5:27 PM EST Inhaled Oxygen Concentration - - Weight 227 kg (500 lb) 05/25/2023 5:27 PM EST Height 195.6 cm (6' 5 ) 05/25/2023 5:27 PM EST Body Mass Index 59.29 05/25/2023 5:27 PM EST Plan of Treatment Health Maintenance Due Date Last Done Comments [facility]-Depression Screening 1984 [facility]-HIV Screening 1984 [facility]-Hepatitis C Screening 1984 [facility]-/Child/Adol SDOH Screenings 1984 [facility]-Obesity Intervention 1990 [facility]-Varicella Vaccines (1 of 2 - 13+ 2-dose series) 1997 HPV Vaccines (1 - Male 3-dos e series) 12/01/1999 [facility]- SDOH Screenings 2002 [facility]-Adult SDOH Screenings 2002 [facility]-DTaP,Tdap,and Td Vaccine s (1 - Tdap) 12/01/2003 [facility]-Hepatitis B Vaccines (1 of 3 - 19+ 3-dose series) 12/01/2003 [id number] Vaccine (3 - 2023- season) 2024 11/04/2020, 10/07/2020 [facility]-Influenza Vaccine (#1) 2025 [facility]-Zoster Vaccines (1 of 2) 2034 [facility]-HIB Vaccines Aged Out No longer e ligible based on patient's age to complete this topic [facility]-Hepatitis A Vaccines Aged Out No longer eligible based on patient's age to complete this topic [facility]-IPV Vaccines Aged Out No longer e ligible based on patient's age to complete this topic [facility]-Pneumococcal Vaccine: Pediatrics (0 to 5 Years) and At-Risk Patients (6 to 49 Years) Aged Out No longer eligible b ased on patient's age to complete this topic [facility]-Rotavirus Vaccines Aged Out No lo nger eligible based on patient's age to complete this topic Insurance MEDICAID
--- OUTSIDE RECORDS SUMMARY | 2024-12-12 10:19 | XMS_ITS ---
Author Name [facility] Address [address] [place] [address] Phone [phone] Organization [facility] e, NA DOCUMENT DISCLAIMER Multiple document versions may exist, please be sure you review the latest version. The information in the [facility] Continuity of Care Document represents a summary [...] Infusion (Pump), Every Treatment, Total treatment minutes 255, Turn heparin pump off 60 minutes prior to end of treatment 1000 units/hour Intravenous - push October 24, 2024 October 16, 2025 Active Heparin Sodium (Porcine) 1,000 Units/mL Systemic Bolus, Every Treatment, Total treatment minutes 285 [id number] units Intravenous - push December 24, 2023 December 22, 2024 Active Vitamin D (Calcitriol) Oral During Dialysis, 3X Week 1 mcg Oral October 01, 2024 September 30, 2025 Active Home Medications Medication Instructions Dosage [...] 2 capsule ORAL April 03, 2024 Active nebivolol 10 mg Take by mouth once a day 1 tablet ORAL June 08, 2023 Active nifedipine 60 mg Take by mouth once a day as directed 1 tablet ORAL June 08, 2023 Active pantoprazole 40 mg Take by mouth once a day as directed 1 tablet ORAL June 08, 2023 Active rosuvastatin 10 mg Take by mouth 1 tablet ORAL October 06, 2024 Active Synthroid 137 mcg Take by mouth once a day 1 tablet ORAL September 08, 2024 Active VITAL SIGNS Post-Treatment Vital Signs Vital Sign Value Date / Time Blood Pressure-sitting 145/73 mmHg December 10, 2024 07:34 AM Blood Pressure-standing 158/77 mmHg December 10, 2024 07:34 AM Heart Rate 61 beats per minute December 10 07:34 AM Respiratory Rate 18 breaths per minute December 10, 2024 07:34 AM Temperature 97.0 deg. F December 10, 2024 07 :34 AM Weight Vital Sign Value Date / Time Estimated Dry Weight 224.85 kg December 22, 2024 11:59 PM Pre-Dialysis 225.45 kg December 10, 2024 07 :34 AM Post-Dialysis 224.85 kg December 10, 2024 07 :34 AM Other Other Value Date / Time Height 193 cm June 05, 2023 12:00 AM Body Mass Index 60.55 kg/m2 December 08, 2024 09 :59 AM HEALTH CONCERNS Tuberculosis Testing TST Date Administered TST Date Read TST Result 11/12/2023 11/14/2023 Negative (<5) mm LAB RESULTS Hematology Result Type Result Value Relevant Referen ce Range Interpretation Date Folate, Serum 14.8 ng/mL No Reference Ran ge Provided - December 31, 2023 Neutrophils 35.5 % 40.0 - 75.0 % Low June 132024 WBC (No Diff) 2.62 1000/mcL 4.80 - 10.80 1000/mcL Low June 30, 2024 Platelets 167 1000/mcL 130 - 400 1000/mcL - ua2024 Transferrin Sat. (Calc) 23 % 20 - 55 % - July 07 TIBC 300 mcg/dL 185 - 515 mcg/dL - July 07, 2024 Ferritin 109 ng/mL 22 - 322 ng/mL - June 142024 UIBC (Calc) 231 mcg/dL 155 - 355 mcg/dL - 2024 UIBC (Calc) 234 mcg/dL 155 - 355 mcg/dL - July 112024 TIBC 286 mcg/dL 185 - 515 mcg/dL - July Transferrin Sat. (Calc) 18 % 20 - 55 % Low July 28, 2024 Neutrophils 63.2 % 40.0 - 75.0 % - July 28, 2024 WBC (No Diff) 6.72 1000/mcL 4.80 - 10.80 1000/mcL - July 28, 2024 Platelets 185 1000/mcL 130 - 400 1000/mcL - Juliocesar h 2024 TIBC 297 mcg/dL 185 - 515 mcg/dL - August UIBC (Calc) 258 mcg/dL 155 - 355 mcg/dL - August 122024 Transferrin Sat. (Calc) 13 % 20 - 55 % Low September 01, 2024 Platelets 193 1000/mcL 130 - 400 1000/mcL - Apri l 2024 Neutrophils 57.9 % 40.0 - 75.0 % - September 01, 2024 WBC (No Diff) 5.14 1000/mcL 4.80 - 10.80 1000/mcL - September 01, 2024 Hemoglobin x 3 36.0 % 42.0 - 54.0 % Low September 15, 2024 Hemoglobin x 3 35.4 % 42.0 - 54.0 % Low September 22, 2024 WBC (No Diff) 6.63 1000/mcL 4.80 - 10.80 1000/mcL - September 29, 2024 MCHC 32.4 g/dL 30.0 - 36.0 g/dL - September 29, 2024 RDW 14.9 % 11.5 - 14.5 % High September 29 MCH 29.0 pg 27.0 - 31.0 pg - September 29 Platelets 213 1000/mcL 130 - 400 1000/mcL - September 29, 2024 Hemoglobin x 3 36.3 % 42.0 - 54.0 % Low September 29, 2024 Neutrophils 67.9 % 40.0 - 75.0 % - September 29 UIBC (Calc) 243 mcg/dL 155 - 355 mcg/dL - September 29, 2024 Lymphocytes 17.5 % 19.0 - 48.0 % Low September 29 Iron 57 mcg/dL 45 - 160 mcg/dL - September 29 025 Basophils 1.5 % 0.0 - 1.5 % - September 29, 2024 MARK 2.4 % 0.0 - 4.0 % - September 29, 2024 Monocytes 7.4 % 3.0 - 10.0 % - September 29, 2024 Eosinophil 3.3 % 0.0 - 7.0 % - September 29, 2024 Ferritin 86 ng/mL 22 - 322 ng/mL - September 29 Transferrin Sat. (Calc) 19 % 20 - 55 % Low September 29, 2024 TIBC 300 mcg/dL 185 - 515 mcg/dL - September 29, 2024 Hemoglobin x 3 37.2 % 42.0 - 54.0 % Low October 06, 2024 Hemoglobin x 3 33.3 % 42.0 - 54.0 % Low October Hemoglobin x 3 35.7 % 42.0 - 54.0 % Low October UIBC (Calc) 228 mcg/dL 155 - 355 mcg/dL - October Iron 65 mcg/dL 45 - 160 mcg/dL - October 27, 2024 Transferrin Sat. (Calc) 22 % 20 - 55 % - October 27, 2024 TIBC 293 mcg/dL 185 - 515 mcg/dL - October 27, 2024 Lymphocytes 22.7 % 19.0 - 48.0 % - October 27 025 Neutrophils 62.5 % 40.0 - 75.0 % - October 27 Platelets 238 1000/mcL 130 - 400 1000/mcL - October 27, 2024 Hemoglobin x 3 37.5 % 42.0 - 54.0 % Low October RDW 15.5 % 11.5 - 14.5 % High October 27 MCHC 32.0 g/dL 30.0 - 36.0 g/dL - October 27, 2024 MCH 28.4 pg 27.0 - 31.0 pg - October 27 025 Basophils 0.8 % 0.0 - 1.5 % - October 27, 2024 Eosinophil 2.6 % 0.0 - 7.0 % - October 27, 2024 Monocytes 8.0 % 3.0 - 10.0 % - October 27 WBC (No Diff) 7.02 1000/mcL 4.80 - 10.80 1000/mcL - October 27, 2024 MARK 3.3 % 0.0 - 4.0 % - October 27, 2024 Hemoglobin x 3 37.8 % 42.0 - 54.0 % Low October Hemoglobin x 3 37.2 % 42.0 - 54.0 % Low November HGB 12.4 g/dL 14.0 - 18.0 g/dL Low November 17, 2024 Hemoglobin x 3 37.2 % 42.0 - 54.0 % Low November Hemoglobin x 3 35.1 % 42.0 - 54.0 % Low November HGB 11.7 g/dL 14.0 - 18.0 g/dL Low November 24, 2024 Iron 33 mcg/dL 45 - 160 mcg/dL Low December 01, 2024 UIBC (Calc) 280 mcg/dL 155 - 355 mcg/dL - November TIBC 313 mcg/dL 185 - 515 mcg/dL - December 01, 2024 Transferrin Sat. (Calc) 11 % 20 - 55 % Low December 01, 2024 MARK 3.9 % 0.0 - 4.0 % - December 01, 2024 Basophils 2.4 % 0.0 - 1.5 % High December 01, 2024 WBC (No Diff) 4.97 1000/mcL 4.80 - 10.80 1000/mcL - December 01, 2024 Lymphocytes 23.2 % 19.0 - 48.0 % - December 01 Neutrophils 58.1 % 40.0 - 75.0 % - December 01 Eosinophil 4.0 % 0.0 - 7.0 % - December 01, 2024 Monocytes 8.4 % 3.0 - 10.0 % - December 01 HCT 38.9 % 42.0 - 52.0 % Low December 01 25 MCHC 32.0 g/dL 30.0 - 36.0 g/dL - December 01, 2024 MCH 28.6 pg 27.0 - 31.0 pg - December 01 RBC 4.36 mill/mcL 4.70 - 6.10 mill/mcL Low December 01, 2024 HGB 12.5 g/dL 14.0 - 18.0 g/dL Low December 01, 2024 RDW 14.8 % 11.5 - 14.5 % High December 01 Platelets 205 1000/mcL 130 - 400 1000/mcL - December 01, 2024 Hemoglobin x 3 37.5 % 42.0 - 54.0 % Low November HGB 12.9 g/dL 14.0 - 18.0 g/dL Low December 08, 2024 Hemoglobin x 3 38.7 % 42.0 - 54.0 % Low November Metabolic/Renal Result Type Result Value Relevant Reference Range Interpre tation Date BUN, Post 23 mg/dL 6 - 19 mg/dL High September 15, 2024 URR, Calc 69 % 65 - 80 % - September 15, 2024 BUN 74 mg/dL 6 - 19 mg/dL High September 15, 2024 BUN 55 mg/dL 6 - 19 mg/dL High September 17, 2024 BUN, Post 16 mg/dL 6 - 19 mg/dL - September 17, 2024 URR, Calc 71 % 65 - 80 % - September 17, 2024 BUN, Post 18 mg/dL 6 - 19 mg/dL - September 29, 2024 BUN 59 mg/dL 6 - 19 mg/dL High September 29, 2024 Creatinine, Serum 11.16 mg/dL 0.60 - 1.30 mg/dL High September 29, 2024 Bicarbonate 22 mEq/L 20 - 31 mEq/L - September 29 25 Chloride 102 mEq/L 96 - 108 mEq/L - September 29 25 Potassium 4.7 mEq/L 3.5 - 5.1 mEq/L - September 29 025 Sodium 139 mEq/L 136 - 145 mEq/L - September 29 BUN/Creat Ratio 5.3 10.0 - 20.0 Low September 29, 2024 URR, Calc 69 % 65 - 80 % - September 29, 2024 BUN 68 mg/dL 6 - 19 mg/dL High October 15 URR, Calc 66 % 65 - 80 % - October 15, 2024 BUN, Post 23 mg/dL 6 - 19 mg/dL High October 15 Creatinine, Serum 11.39 mg/dL 0.60 - 1.30 mg/dL High October 27, 2024 BUN 62 mg/dL 6 - 19 mg/dL High October 27 Sodium 142 mEq/L 136 - 145 mEq/L - October 27, 2024 BUN/Creat Ratio 5.4 10.0 - 20.0 Low October 27, 2024 Potassium 4.7 mEq/L 3.5 - 5.1 mEq/L - October 27, 2024 Bicarbonate 26 mEq/L 20 - 31 mEq/L - October 27 025 Chloride 104 mEq/L 96 - 108 mEq/L - October 27 URR, Calc 71 % 65 - 80 % - October 27, 2024 BUN, Post 18 mg/dL 6 - 19 mg/dL - October 27 BUN, Post 24 mg/dL 6 - 19 mg/dL High November 17 URR, Calc 71 % 65 - 80 % - November 17, 2024 BUN 84 mg/dL 6 - 19 mg/dL High November 17 BUN 60 mg/dL 6 - 19 mg/dL High December 01 Creatinine, Serum 11.46 mg/dL 0.60 - 1.30 mg/dL High December 01, 2024 BUN/Creat Ratio 5.2 10.0 - 20.0 Low December 01, 2024 Sodium 140 mEq/L 136 - 145 mEq/L - December 01, 2024 Potassium 5.0 mEq/L 3.5 - 5.1 mEq/L - December 01, 2024 Chloride 104 mEq/L 96 - 108 mEq/L - December 01 Bicarbonate 23 mEq/L 20 - 31 mEq/L - December 01 HD Adequacy Result Type Result Value Relevant Referen ce Range Interpretation Date Krt/V 0.00 No Reference Ran ge Provided - June 16, 2024 Krt/V 0.00 No Reference Ran ge Provided - July 14, 2024 Krt/V 0.00 No Reference Ran ge Provided - August 18, 2024 Krt/V 0.00 No Reference Ran ge Provided - August 29, 2024 spKt/V Got 1.37 No Reference Ran ge Provided - September 15, 2024 spKt/V (Daugirdas II) 1.33 No Reference Range Provided - September 15, 2024 wstdKt/V, residual 0.0 No Reference Range Provided - September 15, 2024 wstdKt/V 2.3 No Reference Ran ge Provided - September 15, 2024 eKt/V ([place]) 1.17 No Reference Range Provided - September 15, 2024 Krt/V 0.00 No Reference Ran ge Provided - September 15, 2024 wstdKt/V without residual 2.3 No Reference Range Provided - September 15, 2024 Krt/V 0.00 No Reference Ran ge Provided - September 17, 2024 spKt/V (Daugirdas II) 1.38 No Reference Range Provided - September 17, 2024 eKt/V ([place]) 1.22 No Reference Range Provided - September 17, 2024 spKt/V Gotch 1.42 No Reference Ran ge Provided - September 17, 2024 wstdKt/V without residual 2.3 No Reference Range Provided - September 17, 2024 wstdKt/V, residual 0.0 No Reference Range Provided - September 17, 2024 wstdKt/V 2.3 No Reference Ran ge Provided - September 17, 2024 wstdKt/V, residual 0.0 No Reference Range Provided - September 29, 2024 Krt/V 0.00 No Reference Ran ge Provided - September 29, 2024 spKt/V (Daugirdas II) 1.36 No Reference Range Provided - September 29, 2024 wstdKt/V without residual 2.3 No Reference Range Provided - September 29, 2024 spKt/V Gotch 1.39 No Reference Ran ge Provided - September 29, 2024 wstdKt/V 2.3 No Reference Ran ge Provided - September 29, 2024 eKt/V ([place]) 1.20 No Reference Range Provided - September 29, 2024 spKt/V (Daugirdas II) 1.24 No Reference Range Provided - October 15, 2024 wstdKt/V without residual 1.5 No Reference Range Provided - October 15, 2024 Krt/V 0.00 No Reference Ran ge Provided - October 15, 2024 wstdKt/V 1.5 No Reference Ran ge Provided - October 15, 2024 eKt/V ([place]) 1.09 No Reference Range Provided - October 15, 2024 wstdKt/V, residual 0.0 No Reference Range Provided - October 15, 2024 spKt/V Got 1.29 No Reference Ran ge Provided - October 15, 2024 spKt/V Got 1.43 No Reference Ran ge Provided - October 27, 2024 spKt/V (Daugirdas II) 1.41 No Reference Range Provided - October 27, 2024 eKt/V ([place]) 1.25 No Reference Range Provided - October 27, 2024 wstdKt/V, residual 0.0 No Reference Range Provided - October 27, 2024 Krt/V 0.00 No Reference Ran ge Provided - October 27, 2024 wstdKt/V without residual 2.4 No Reference Range Provided - October 27, 2024 wstdKt/V 2.4 No Reference Ran ge Provided - October 27, 2024 spKt/V (Daugirdas II) 1.41 No Reference Range Provided - November 17, 2024 wstdKt/V 1.6 No Reference Ran ge Provided - November 17, 2024 eKt/V ([place]) 1.25 No Reference Range Provided - November 17, 2024 Krt/V 0.00 No Reference Ran ge Provided - November 17, 2024 spKt/V Gotch 1.41 No Reference Ran ge Provided - November 17, 2024 wstdKt/V without residual 1.6 No Reference Range Provided - November 17, 2024 wstdKt/V, residual 0.0 No Reference Range Provided - November 17, 2024 Bone/Mineral Result Type Result Value Relevant Referen ce Range Interpretation Date Magnesium 2.1 mg/dL 1.6 - 2.6 mg/dL - December Vitamin D 25 Hydroxy 11.4 ng/mL 30.0 - 100.0 ng/mL Low December 31, 2023 Magnesium 2.3 mg/dL 1.6 - 2.6 mg/dL - March 31, 2024 PTH-Intact, Plasma 458 pg/mL 16 - 80 pg/mL High Jun ru2024 Vitamin D 25 Hydroxy 9.3 ng/mL 30.0 - 100.0 ng/mL Low June 30, 2024 Magnesium 2.2 mg/dL 1.6 - 2.6 mg/dL - July 07, 2024 PTH-Intact, Plasma 403 pg/mL 16 - 80 pg/mL High Jul PTH-Intact, Plasma 613 pg/mL 16 - 80 pg/mL High September 29, 2024 Alkaline Phosphatase 98 U/L 40 - 129 U/L - Ms 2024 Ca x P Product 54 0 - 54 - September 29 Phosphorus 6.0 mg/dL 2.6 - 4.5 mg/dL High September 29 025 Calcium, Total 9.0 mg/dL 8.7 - 10.4 mg/dL - September 29, 2024 Magnesium 2.1 mg/dL 1.6 - 2.6 mg/dL - September 29 025 Corrected Ca x P Product 53 0 - 54 - September 29, 2024 Phosphorus 5.8 mg/dL 2.6 - 4.5 mg/dL High October 27, 2024 Calcium, Total 9.3 mg/dL 8.7 - 10.4 mg/dL - October 27, 2024 Alkaline Phosphatase 100 U/L 40 - 129 U/L - 2024 Ca x P Product 54 0 - 54 - October 27 025 Corrected Ca x P Product 53 0 - 54 - October 27, 2024 PTH-Intact, Plasma 612 pg/mL 16 - 80 pg/mL High Oct Calcium, Total 9.0 mg/dL 8.7 - 10.4 mg/dL - December 01, 2024 Phosphorus 5.4 mg/dL 2.6 - 4.5 mg/dL High December 01, 2024 Ca x P Product 49 0 - 54 - December 01 025 Alkaline Phosphatase 94 U/L 40 - 129 U/L - 2024 Corrected Ca x P Product 48 0 - 54 - December 01, 2024 Liver/Nutrition Result Type Result Value Relevant Reference Range Interpre tation Date eNPCR 0.94 No Reference Range Provided - September 15, 2024 eNPCR 0.87 No Reference Range Provided - September 17, 2024 eNPCR 0.79 No Reference Range Provided - September 29, 2024 Total Protein 7.0 g/dL 6.0 - 8.5 g/dL - September 29, 2024 SGOT (AST) 14 U/L 13 - 39 U/L - September 29, 2024 A/G Ratio 1.6 1.0 - 2.0 - September 29, 2024 Globulin (Calc) 2.7 g/dL 2.0 - 4.0 g/dL - September 112024 Albumin (BCG) 4.3 g/dL 3.5 - 5.2 g/dL - September 29, 2024 eNPCR 1.00 No Reference Range Provided - October 15, 2024 Total Protein 7.0 g/dL 6.0 - 8.5 g/dL - October SGOT (AST) 18 U/L 13 - 39 U/L - October 27, 2024 Albumin (BCG) 4.3 g/dL 3.5 - 5.2 g/dL - October A/G Ratio 1.6 1.0 - 2.0 - October 27, 2024 Globulin (Calc) 2.7 g/dL 2.0 - 4.0 g/dL - October 27, 2024 eNPCR 0.83 No Reference Range Provided - October 27, 2024 eNPCR 1.04 No Reference Range Provided - November 17, 2024 A/G Ratio 1.7 1.0 - 2.0 - December 01, 2024 SGOT (AST) 14 U/L 13 - 39 U/L - December 01, 2024 Total Protein 6.9 g/dL 6.0 - 8.5 g/dL - November Albumin (BCG) 4.3 g/dL 3.5 - 5.2 g/dL - November Globulin (Calc) 2.6 g/dL 2.0 - 4.0 g/dL - December 01, 2024 Immunochemistry Result Type Result Value Relevant [...] (HBsAg) Negative No Reference Range Provided - December 01, 2024 DIALYSIS PRESCRIPTION Conventional Hemodialysis Data Element Value Order Date/Time December 22, 2024 Frequency 3X Week Treatment Days TueThuSat Dialyzer Optiflux 250NRe Treatment Time (Total Minutes) 255 min Blood Flow Rate (mL/min) 500 mL/min Dialysate Flow Rate Autoflow 2.0 Estimated Dry Weight 225.8 kg Dialysate Concentrate 2.0 K, 2.5 Ca, 1.0 Mg, 100 Dextrose (G2251) Sodium (mEq/L) 137 mEq/L Bicarb Machine Setting (mEq/L) 35 mEq/L Dialysis Access Hemodialysis-AV Fist paula-Standard, Left Upper Arm, Other/Unknown Access Placed on August 28, 2023 Arterial Needle Size 14g1 Venous Needle Size 14g1 Conventional Hemodialysis Data Element Value Order Date/Time December 22, 2024 Frequency 3X Week Treatment Days TueThuSat Dialyzer Optiflux 250NRe Treatment Time (Total Minutes) 255 min Blood Flow Rate (mL/min) 500 mL/min Dialysate Flow Rate Autoflow 2.0 Estimated Dry Weight 225.55 kg Dialysate Concentrate 2.0 K, 2.5 Ca, 1.0 Mg, 100 Dextrose (G2251) Sodium (mEq/L) 137 mEq/L Bicarb Machine Setting (mEq/L) 35 mEq/L Dialysis Access Hemodialysis-AV Fist paula-Standard, Left Upper Arm, Other/Unknown Access Placed on August 28, 2023 Arterial Needle Size 14g1 Venous Needle Size 14g1 Conventional Hemodialysis Data Element Value Order Date/Time December 22, 2024 Frequency 3X Week Treatment Days TueThuSat Dialyzer Optiflux 250NRe Treatment Time (Total Minutes) 255 min Blood Flow Rate (mL/min) 500 mL/min Dialysate Flow Rate Autoflow 2.0 Estimated Dry Weight 225.05 kg Dialysate Concentrate 2.0 K, 2.5 Ca, 1.0 Mg, 100 Dextrose (G2251) Sodium (mEq/L) 137 mEq/L Bicarb Machine Setting (mEq/L) 35 mEq/L Dialysis Access Hemodialysis-AV Fist paula-Standard, Left Upper Arm, Other/Unknown Access Placed on August 28, 2023 Arterial Needle Size 14g1 Venous Needle Size 14g1 Conventional Hemodialysis Data Element Value Order Date/Time December 10, 2024 Frequency 3X Week Treatment Days TueThuSat Dialyzer Optiflux 250NRe Treatment Time (Total Minutes) 255 min Blood Flow Rate (mL/min) 500 mL/min Dialysate Flow Rate Autoflow 2.0 Estimated Dry Weight 224.85 kg Dialysate Concentrate 2.0 K, 2.5 Ca, 1.0 Mg, 100 Dextrose (G2251) Sodium (mEq/L) 137 mEq/L Bicarb Machine Setting (mEq/L) 35 mEq/L Dialysis Access Hemodialysis-AV Fist paula-Standard, Left Upper Arm, Other/Unknown Access Placed on August 28, 2023 Arterial Needle Size 14g1 Venous Needle Size 14g1 Conventional Hemodialysis Data Element Value Order Date/Time December 22, 2024 Frequency 3X Week Treatment Days TueThuSat Dialyzer Optiflux 250NRe Treatment Time (Total Minutes) 255 min Blood Flow Rate (mL/min) 500 mL/min Dialysate Flow Rate Autoflow 2.0 Estimated Dry Weight 224.85 kg Dialysate Concentrate 2.0 K, 2.5 Ca, [...] 27, 2023 20.0 mcg Intramuscular Completed PREVNAR 20 July 11, 2023 0.5 mL Intramuscular Comp [...] (mL/min) Dialysate Dialyzer Dialysis Access Meds Admin December 05, 2024 Weight 228.25 kg Weight 225.55 kg 04:16:00 500 2.0 K, 2.5 Ca, 1.0 Mg, 100 Dextrose (G2251) Optifl ux 250nre Blood Pressure-sitting 180/80 mmHg Blood Pressure-sit ting 130/62 mmHg Blood Pressure-standing 190/80 mmHg Blood Pressure-st anding 157/76 mmHg Heart Rate 71 beats per minute Heart Rate 71 beats per minute Respiratory Rate 19 breaths per minute Respiratory Rate 17 breaths per minute Temperature 97.8 deg. F Temperature 98.3 deg. F December 08, 2024 Weight 226.75 kg Weight 225.05 kg 04:16:00 500 2.0 K, 2.5 Ca, 1.0 Mg, 100 Dextrose (G2251) Optiflux 250nre Hemodialysis-AV Fistula-Standard, Left Upper Arm, Other/Unknown Access Placed on August 28, 2023 Heparin Sodium (Porcine) 1,000 Units/mL Systemic; [id number],Intravenous - push Heparin Sodium (Porcine) 1,000 Units/mL Systemic; 1000units,Intravenous - push Vitamin D (Calcitriol) Oral; 1mcg,Oral Blood Pressure-sitting 140/83 mmHg Blood Pressure-sit ting 166/82 mmHg Blood Pressure-standing 157/90 mmHg Blood Pressure-st anding 155/89 mmHg Heart Rate 71 beats per minute Heart Rate 63 beats per minute Respiratory Rate 19 breaths per minute Respiratory Rate 16 breaths per minute Temperature 96.9 deg. F Temperature 97.4 deg. F December 10, 2024 Weight 225.45 kg Weight 224.85 kg 04:11:00 500 2.0 K, 2.5 Ca, 1.0 Mg, 100 Dextrose (G2251) Optiflux 250nre Hemodialysis-AV Fistula-Standard, Left Upper Arm, Other/Unknown Access Placed on August 28, 2023 Heparin Sodium (Porcine) 1,000 Units/mL Systemic; [id number],Intravenous - push Heparin Sodium (Porcine) 1,000 Units/mL Systemic; 1000units,Intravenous - push Vitamin D (Calcitriol) Oral; 1mcg,Oral Blood Pressure-sitting 167/83 mmHg Blood Pressure-sit ting 145/73 mmHg Blood Pressure-standing 161/88 mmHg Blood Pressure-st anding 158/77 mmHg Heart Rate 73 beats per minute Heart Rate 61 beats per minute Respiratory Rate 18 breaths per minute Respiratory Rate 18 breaths per minute Temperature 97.1 deg. F Temperature 97.0 deg. F
--- OUTSIDE RECORDS SUMMARY | 2024-12-12 10:19 | XMS_ITS | Referral Summary ---
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.] 11/18/2023 6:00 AM EDT Plan of Treatment Not on file Procedures Procedure Name Priority Date/Time Associated Diagnosis Comments HEPATITIS PANEL, ACUTE Routine 05/23/2023 9:07 AM EST HIV 1/2 AG/AB COMBO Routine 05/23/2023 9 :07 AM EST from Last 3 Months or Most Recently Relevant to Health Maintenance Results * HIV 1/2 AG/AB Combo (05/23/2023 9:07 AM EST) HIV-1 P24 Antigen Nonreactive Nonreactive 05/23/2023 10:47 AM EST [facility] Comment: The Combo HIV procedure is [...] MD LAB BLOOD ORDERABLES Final Resul t [facility] [address] [phone] * Hepatitis panel, acute (05/23/2023 9:07 AM EST) Hep A IgM Nonreactive Nonreactive, Equivocal 05/23/2023 10:41 AM EST [facility] Hep B C IgM Nonreactive Nonreactive 05/23/2023 10:41 AM EST [facility] Hepatitis B surface antigen Nonreactive Nonreactive, Equivocal 05/23/2023 10:41 AM EST [facility] Hepatitis C Ab Nonreactive Nonreactive, Equivocal 05/23/2023 10:41 AM EST [facility] Blood Venipuncture / Unknown 05/23/2023 9:07 AM EST 05/23/2023 9:16 AM EST Narrative [facility] - 05/23/2023 10:41 AM EST Hepatitis [...] 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 us Alex Stewart MD LAB BLOOD ORDERABLES Final Resul t [facility] [address] [phone] from Last 3 Months or Most Recently Relevant to Health Maintenance Insurance [facility] MEDICAID Advance Directives For more information, please contact: [phone] * Full Code (Latest Code Status on File) Date Activated Date Inactivated Comments 11/18/2023 6:34 AM 11/18/2023 11:29 AM * Full Code Date Activated Date Inactivated Comments 08/28/2023 10:31 AM 08/29/2023 12:17 PM * Full Code Date Activated Date Inactivated Comments 05/22/2023 11:56 AM 05/25/2023 5:48 PM Care Teams Artificial Log Machine Operator Relationship Specialty Start Date End Date Mark Ch MD [address] [place] [address] PCP - General Family Medicine 09/09/23
== END 2024-12-11 23:59 | disposition home or self-care (01) ==
LOC: LAB.DROPOF 12-12 10:17
PROVIDERS: PCP Family Medicine; Visit Provider Family Medicine
DX: E03.9 Hypothyroidism, unspecified (principal); I10 Essential (primary) hypertension; R73.03 Prediabetes; Z11.59 Encounter for screening for other viral diseases; Z11.4 Encounter for screening for human immunodeficiency virus [HIV]
CPT/HCPCS: 80053; 80061; 83036; 84443; 85025; 86803; 87340; 87389

== ENCOUNTER 2025-04-28 09:35 | Outpatient (CLI) | payer MEDICAID, SELFPAY ==
[2025-04-28 14:52] LABS: Hematocrit 41.0 % (42.0-52.0); Hemoglobin 13.1 g/dL (14.1-18.0); Immature Granulocytes % 0.5 %; Mean Corpuscular HGB Conc 32.0 g/dL (31.8-35.4); Mean Corpuscular Hemoglobin 28.5 pg (27.0-31.2); Mean Corpuscular Volume 89.1 fl (80-94); Nucleated Red Blood Cells % 0 %; Platelet Count 233 K/mm3 (142-424); Red Blood Count 4.60 M/mm3 (4.60-6.20); Red Cell Distribution Width-SD 47.7 fL; White Blood Count 7.9 K/mm3 (4.8-10.8)
--- OUTSIDE RECORDS SUMMARY | 2025-04-28 20:09 | XMS_ITS | Referral Summary ---
Author Organization [employer] ([place], [place], [place], [place], [place]) Address [address] [place] [address] Care Team Providers Care Stem Roller Operator Name Role Phone Mark Ch MD Primary Care Provider [phone] Allergies No known active allergies Medications nebivoloL [...] Date Eyad rded Speak language other than British at home Not on file 05/22/2023 Want help with school or training Not on file 05/22/2023 Substance Use Answer Date Recorded Used prescription meds for non-medical reasons N ot on file 05/22/2023 Used illegal drugs past 12 months Not on file 05/22/2023 Sex and Gender Information Value Date Recorded Sex Assigned at Not on file 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 Gender Identity Not on file Sexual Orientation [...] Antigen Nonreactive Nonreactive 05/23/2023 10:47 AM EST [facility] Comment: The Combo HIV procedure is [...] MD LAB BLOOD ORDERABLES Final Resul t [facility] [address] [phone] * Hepatitis panel, acute (05/23/2023 9:07 AM EST) Hep A IgM Nonreactive Nonreactive, Equivocal 05/23/2023 10:41 AM EST [facility] Hep B C IgM Nonreactive Nonreactive 05/23/2023 10:41 AM EST [facility] Hepatitis B surface antigen Nonreactive Nonreactive, Equivocal 05/23/2023 10:41 AM EST [facility] Hepatitis C Ab Nonreactive Nonreactive, Equivocal 05/23/2023 10:41 AM EST [facility] Blood Venipuncture / Unknown 05/23/2023 9:07 AM EST 05/23/2023 9:16 AM EST Narrative [facility] - 05/23/2023 10:41 AM EST Hepatitis [...] MD LAB BLOOD ORDERABLES Final Resul t [facility] [address] [phone] from Last 3 Months or Most Recently Relevant to Health Maintenance Insurance [facility] MEDICAID Advance Directives For more information, please contact: [phone] * Full Code (Latest Code Status on File) Date Activated Date Inactivated Comments 11/18/2023 6:34 AM 11/18/2023 11:29 AM * Full Code Date Activated Date Inactivated Comments 08/28/2023 10:31 AM 08/29/2023 12:17 PM * Full Code Date Activated Date Inactivated Comments 05/22/2023 11:56 AM 05/25/2023 5:48 PM Care Teams Stem Roller Operator Relationship Specialty Start Date End Date Mark Ch MD [address] [place], [place] [id number] PCP - General Family Medicine 09/09/23
--- OUTSIDE RECORDS SUMMARY | 2025-04-28 20:09 | XMS_ITS | Clinical Summary ---
Author Organization [facility] Address [address] [place] [address] Care Team Providers Care Agile Test Lead Name Role Phone Mark Ch MD Primary Care Provider [phone] Allergies No known active allergies Medications levothyroxine [...] Recorded In the past 12 months has [employer], gas, oil, or water company threatened to [...] and heating? Not hard at all 05/27/2023 [facility] of Occupat ional Health - Occupational Stress [...] GED or equivalent No 05/27/2023 Preferred Language Greek 05/27/2023 PHQ-2 Answer Date Recorded Retired PHQ-9: [...] (1 - Tdap) 12/01/2003 ANNUAL PHYSICAL 06/01/2023 INFLUENZA VACCINE 12/11/2024 HEPATITIS C SCREENING Completed 05/28/2023 Pneumococcal Vaccine [...] ve Non-Reacti ve 05/28/2023 3:17 PM EST [facility] Hep A IgM Non-Reacti ve Non-Reacti ve 05/28/2023 3:17 PM EST [facility] Hep B C IgM Non-Reacti ve Non-Reacti ve 05/28/2023 3:17 PM EST [facility] Hepatitis C Ab Non-Reacti ve Non-Reacti ve 05/28/2023 3:17 PM EST [facility] Blood Venipuncture / Unknown 05/28/2023 2:23 PM EST 05/28/2023 2:46 PM EST Narrative [facility] - 05/28/2023 3:17 PM EST Results may be falsely decreased if patient taking Biotin. Jose Casiano MD LAB BLOOD ORDERABLES nal Result [facility]
[address] [place] [address], from Last 3 Months or Most Recently [...] or is breathing): Full Support Care Teams Agile Test Lead Relationship Specialty Start Date End Date Mark Ch MD [address] [place] [address] PCP - General Family Medicine 05/25/23
--- OUTSIDE RECORDS SUMMARY | 2025-04-28 20:09 | XMS_ITS | Clinical Summary ---
Author Organization [facility] Address [address] [place] [address] Care Team Providers Care Airworthiness Safety Inspector Name Role Phone Unavailable Primary Care Provider [...] [facility]-HIV Screening 1984 [facility]-Hepatitis C Screening 1984 [facility]-Infant/Child/Adol SDOH Screenings 1984 [facility]-Obesity Intervention 1990 [facility]-Varicella Vaccines (1 of 2 - 13+ 2-dose series) 1997 [facility]- SDOH Screenings 2002 [facility]-Adult SDOH Screenings 2002 [facility]-DTaP,Tdap,and Td Vaccine s (1 - Tdap) 12/01/2003 [facility]-Hepatitis B Vaccines (1 of 3 - 19+ 3-dose series) 12/01/2003 [facility]-XPPQT-25 Vaccine (3 - 2024- season) 2025 11/04/2020, 10/07/2020 [facility]-Influenza Vaccine (#1) 2025 [facility]-Zoster Vaccines (1 of 2) 2034 HPV Vaccines (No Doses Required) Completed [facility]-HIB Vaccines Aged Out No longer e [...]
--- OUTSIDE RECORDS SUMMARY | 2025-04-28 20:09 | XMS_ITS | Clinical Summary ---
Author Organization [email or web address] ([place], [place], [place], [place], [place]) Address [address] [place] [address] Care Team Providers Care Community Service Specialist Name Role Phone Mark Ch MD Primary Care Provider [phone] Allergies No known active allergies Medications nebivoloL [...] Date Eyad rded Speak language other than Tristanian at home Not on file 05/22/2023 Want help with school or training Not on file 05/22/2023 Substance Use Answer Date Recorded Used prescription meds for non-medical reasons N ot on file 05/22/2023 Used illegal drugs past 12 months Not on file 05/22/2023 Sex and Gender Information Value Date Recorded Sex Assigned at Not on file 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 Gender Identity Not on file Sexual Orientation [...] (1 - Tdap) 12/01/2003 Lipid Panel 12/01/2019 Tobacco Cessation Counseling and Screening (12+) 11/17/2024 11/18/2023 COVID-19 VACCINE (3 - 2024-2 6 season) 2025 11/04/2020, 10/07/2020 Influenza Vaccine (#1) 2025 06/11/2023 HIV Screening [...] Antigen Nonreactive Nonreactive 05/23/2023 10:47 AM EST [facility] Comment: The Combo HIV procedure is [...] MD LAB BLOOD ORDERABLES Final Resul t [facility] [address] [phone] * Hepatitis panel, acute (05/23/2023 9:07 AM EST) Hep A IgM Nonreactive Nonreactive, Equivocal 05/23/2023 10:41 AM EST [facility] Hep B C IgM Nonreactive Nonreactive 05/23/2023 10:41 AM EST [facility] Hepatitis B surface antigen Nonreactive Nonreactive, Equivocal 05/23/2023 10:41 AM EST [facility] Hepatitis C Ab Nonreactive Nonreactive, Equivocal 05/23/2023 10:41 AM [facility] Blood Venipuncture / Unknown 05/23/2023 9:07 AM EST 05/23/2023 9:16 AM EST [facility] - 05/23/2023 10:41 AM EST [...] MD LAB BLOOD ORDERABLES Final Resul t [facility] [address] [phone] from Last 3 Months or Most Recently Relevant to Health Maintenance Insurance [address] [place], [place] [address]A MEDICAID Advance Directives For more information, please contact: [phone] * Full Code (Latest Code Status on File) Date Activated Date Inactivated Comments 11/18/2023 6:34 AM 11/18/2023 11:29 AM * Full Code Date Activated Date Inactivated Comments 08/28/2023 10:31 AM 08/29/2023 12:17 PM * Full Code Date Activated Date Inactivated Comments 05/22/2023 11:56 AM 05/25/2023 5:48 PM Care Teams Community Service Specialist Relationship Specialty Start Date End Date Mark Ch MD [address] [place] [address] PCP - General Family Medicine 09/09/23
== END 2025-04-28 23:59 | disposition home or self-care (01) ==
LOC: LAB.DROPOF 20:02
PROVIDERS: PCP Student in an Organized Health Care Education/Training Program; Visit Provider Student in an Organized Health Care Education/Training Program
DX: G47.33 Obstructive sleep apnea (adult) (pediatric) (principal); I10 Essential (primary) hypertension
CPT/HCPCS: 85025